=== PATIENT | female | born 1995 | race Caucasian/White ===

== ENCOUNTER 2024-02-13 08:24 | Outpatient (AMB) | payer OTHER, SELFPAY ==
[2024-02-13 08:32] VITALS: BP 100/64; PULSE 75; O2SAT 100; BMI 26.0
--- NOTE | 2024-02-13 08:32 | MHC.OFFVIS ---
Vital Signs 02/13/24 08:32 Height 5 ft 3 in Weight 146 lb 13.246 oz BMI 26.0 BP 100/64 Blood Pressure Location Rt brachial Position Sitting Pulse 75 Pulse Source Pulse Oximeter Pulse Oximetry (%) 100 Oxygen Delivery Method Room Air Intake Visit Reasons: PSA/MR Recieved/lm Intake Note: Patient presents today for follow up on psoriatic arthritis. She was last seen by Dr. Carlson in [facility] on 09/25/2023. She would like to talk about lab orders today. Allergies hydromorphone [From Dilaudid] Allergy (Intermediate, Verified 02/13/24 08:37) Anaphylaxis ketorolac [From Toradol] Allergy (Intermediate, Verified 02/13/24 08:37) Anaphylaxis cocentyx Allergy (Mild, Uncoded 02/13/24 08:37) Rash moxifloxacin Adverse Reaction (Mild, Uncoded 02/13/24 08:37) Swelling HPI HPI PSA/MR Recieved/lm: Details: After last visit she received prednisone course for PsA, which relieved joint pain but exacerbated PsO chest, behind ears, buttocks (inverse PsO). She has been on topical zoryve cream (roflumilist) for the last 3 weeks with benefit by Dermatolgy. 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 Stiffness is occurring throughout the day and these difficulties and function are throughout the day. In the morning she may have difficulty with opening bottles. [facility] Surgical History (Updated 02/12/24 @ 16:32 by Raina Ordaz CMA) H/O colonoscopy Review of Systems Const All systems reviewed & are unremarkable except as noted in HPI and below Physical Exam Vital Signs: Last Vital Signs Pulse 75 02/13/24 08:32 BP 100/64 02/13/24 08:32 Pulse Ox 100 02/13/24 08:32 Oxygen Delivery Method Room Air 02/13/24 08:32 BMI result Body Mass Index 26.0 Const Other: General: Comfortable CVS: RRR Respiratory: clear to auscultation bilaterally. Good respiratory effort Skin: No lesions seen MSK: No tender joints or synovitis present. Good range of motion of upper extremity lower extremity. Negative MIKEL. No SI joint tenderness on palpation. Good lumbar flexion. Good cervical range of motion. Assessment & Plan Assessment & Plan (1) Psoriatic arthritis: Comment: History of psoriatic arthritis HLA B27 positivity. Psoriasis diagnosed at age 10 months, with psoriatic developing at 8 years of age with inflammatory back pain. Sacroiliitis on initial presentation. Humira initially was started but discontinued due to fears of needles when she was 10 years old. She failed Enbrel. Remicade was effective but it was discontinued by level vial marker at the time for unknown reason and patient flared. Cosentyx caused rash. Otezla caused migraines. Simponi helps psoriatic arthritis but not psoriasis. Cimzia initially caused skin infections. Reintroduction of Cimzia 04/13/2020 due to without side effects but then led to secondary treatment failure for psoriasis. Taltz started 2023 by Dermatology. Initially tells did not control inflammatory arthritis. She received a prednisone course in August, which relieved inflammatory arthritis but exacerbated psoriasis. She is now on topical agent roflumilast the last 3 weeks that has been controlling her psoriasis. She is currently experiencing stiffness in her hands with reduced function at times at work. We discussed adjunct therapy with DMARD sulfasalazine. She has a history of drug-induced in the past. She will require close drug monitoring. Discussed side effects, benefits and drug monitoring on sulfasalazine. Sulfasalazine is safe in . She is considering having a 2nd child. Code(s): L40.50 - Arthropathic psoriasis, unspecified Category: Medical Plan: Labs for disease and drug monitoring ordered. Patient prefers to have labs done locally for convenience. She will have labs done this week and again in 1 month. Once I receive lab results with labs that were going to be done this week, I will send sulfasalazine 500 mg twice a day She is going to continue Taltz prescribed by Dermatology Return to clinic in 3 months (2) Other snf (current) drug therapy: Code(s): Z79.899 - Other snf (current) drug therapy Category: Medical Plan: See above Plan . Orders: Orders Alanine Aminotransferase 02/13/24 Z79.899 - Other termite exterminator helper (current) drug therapy Aspartate Amino Transferase 02/13/24 Z79.899 - Other termite exterminator helper (current) drug therapy C Reactive Protein 02/13/24 L40.50 - Arthropathic psoriasis, unspecified, Z79.899 - Other termite exterminator helper (current) drug therapy Complete Blood Count Auto Diff 02/13/24 Z79.899 - Other snf (current) drug therapy Erythrocyte Sedimentation Rate 02/13/24 L40.50 - Arthropathic psoriasis, unspecified, Z79.899 - Other termite exterminator helper (current) drug therapy Hepatitis B,C Profile 02/13/24 L40.50 - Arthropathic psoriasis, unspecified, Z79.899 - Other snf (current) drug therapy Creatinine 02/13/24 L40.50 - Arthropathic psoriasis, unspecified, Z79.899 - Other termite exterminator helper (current) drug therapy C Reactive Protein 02/13/24 L40.50 - Arthropathic psoriasis, unspecified, Z79.899 - Other termite exterminator helper (current) drug therapy Erythrocyte Sedimentation Rate 02/13/24 L40.50 - Arthropathic psoriasis, unspecified, Z79.899 - Other termite exterminator helper (current) drug therapy Alanine Aminotransferase 02/13/24 Z79.899 - Other snf (current) drug therapy T Spot TB 02/13/24 L40.50 - Arthropathic psoriasis, unspecified, Z79.899 - Other snf (current) drug therapy Liver Panel 02/13/24 L40.50 - Arthropathic psoriasis, unspecified, Z79.899 - Other termite exterminator helper (current) drug therapy Creatinine 02/13/24 L40.50 - Arthropathic psoriasis, unspecified, Z79.899 - Other termite exterminator helper (current) drug therapy Complete Blood Count Auto Diff 02/13/24 Z79.899 - Other snf (current) drug therapy Aspartate Amino Transferase 02/13/24 Z79.899 - Other snf (current) drug therapy Coding Level of Care Code Est Pt Level 4 (28808) Diagnoses Psoriatic arthritis L40.50 Other termite exterminator helper (current) drug therapy Z79.899
== END 2024-02-13 09:14 | disposition home or self-care (01) ==
PROVIDERS: PCP Family Medicine; Visit Provider Internal Medicine Rheumatology
DX: L40.50 Arthropathic psoriasis, unspecified (principal); Z79.899 Other long term (current) drug therapy
CPT/HCPCS: 99214

== ENCOUNTER → 2024-02-13 08:24 | Outpatient (BNVA) | payer OTHER, SELFPAY | PROVIDERS: PCP Family Medicine; Visit Provider Internal Medicine Rheumatology ==

== ENCOUNTER 2024-05-19 08:28 | Outpatient (AMB) | payer OTHER, SELFPAY ==
--- NOTE | 2024-05-19 08:31 | A.OFFVIS_ITS ---
Vital Signs 05/19/24 08:38 Height 5 ft 3 in Weight 144 lb 6.444 oz BMI 25.6 BP 110/72 Pulse Oximetry (%) 99 Oxygen Delivery Method Room Air Intake Visit Reasons: 3 mo f/u Intake Note: Patient presents today for follow up on psoriatic arthritis Accompanied by: Self / Same As Patient Allergies hydromorphone [From Dilaudid] Allergy (Intermediate, Verified 05/19/24 08:32) Anaphylaxis ketorolac [From Toradol] Allergy (Intermediate, Verified 05/19/24 08:32) Anaphylaxis cocentyx Allergy (Mild, Uncoded 02/13/24 08:37) Rash moxifloxacin Adverse Reaction (Mild, Uncoded 02/13/24 08:37) Swelling HPI HPI 3 mo f/u: Details: No joint stiffness or pain. Denies joint swelling. A day before she is on Taltz she experiences left SI joint pain, which resolves after taking Taltz. She has resolution of psoriasis on her anterior chest and extremities with topical zoryve cream prescribed by Dermatology who is also prescribing her Taltz. She will be having regular monitoring of liver enzymes as in the past she has had transaminitis attributed to her immunosuppressive therapy for management of psoriatic arthritis and psoriasis. She continues to have psoriasis on bilateral eyelids upper and lower. She had an incident where she had blurry vision. She has seen telesales supervisor on campus [facility] site who has prescribed her topical antibiotics. She at this time does not have any infections but in the past she has had secondary infections such as staphylococcal infection from active psoriasis. She has a history of having se condary skin infections in her extremities and at the site where she has had nasal psoriasis due to psoriasis not being well controlled. Once the psoriasis is controlled, infections resolved. She has had left 4th trigger finger release age 8 with onset of trigger finger at age 6. She has had limited full flexion of left 4th finger. She also had trigger finger release on right hand age 13 with complete mobility. She is trying to have a 2nd child. She has spoken with Dermatology. If she gets , Taltz will be switched back to Cimzia. [facility] Surgical History H/O colonoscopy Review of Systems Const All systems reviewed & are unremarkable except as noted in HPI and below Physical Exam Vital Signs: Last Vital Signs BP 110/72 02/25/25 08:38 Pulse Ox 99 05/19/24 08:38 Oxygen Delivery Method Room Air 05/19/24 08:38 BMI result Body Mass Index 25.6 Const Other: General: Comfortable CVS: RRR Respiratory: clear to auscultation bilaterally. Good respiratory effort Skin: No lesions seen MSK: No tender joints or synovitis present. Good range of motion of upper extremity lower extremity. Negative MIKEL. No SI joint tenderness on palpation. Good lumbar flexion. Good cervical range of motion. Assessment & Plan Assessment & Plan (1) Psoriatic arthritis: Comment: History of psoriatic arthritis HLA B27 positivity. Psoriasis diagnosed at age 10 months, with psoriatic developing at 8 years of age with inflammatory back pain. Sacroiliitis on initial presentation. Humira initially was started but discontinued due to fears of needles when she was 10 years old. She failed Enbrel. Remicade was effective but it was discontinued by home visitor at the time for unknown reason and patient flared. Cosentyx caused rash. Otezla caused migraines. Simponi helps psoriatic arthritis but not psoriasis. Cimzia initially caused skin infections. Reintroduction of Cimzia 04/13/2020 due to without side effects but then led to secondary treatment failure for psoriasis. Taltz started 2023 by Dermatology. Initially tells did not control inflammatory arthritis. She received a prednisone course in August, which relieved inflammatory arthritis but exacerbated psoriasis. She is now on top ical agent roflumilast the last 3 weeks that has been controlling her psoriasis except on eyelids. Sulfasalazine was started due to stiffness in hands, which patient took for a month but did not have labs done for drug monitoring to enable continuation of treatment. At this time she does not have any more stiffness. She is considering having a 2nd child. If she gets , Dermatology we will change Taltz to Cimzia. Code(s): L40.50 - Arthropathic psoriasis, unspecified Category: Medical Plan: Monitor clinically for symptoms of psoriatic arthritis while patient is on Taltz prescribed by events specialist indicated for both psoriatic arthritis and psoriasis Ophthalmology referral [facility] Ophthalmology Dr. Elsa Encinas for further management and treatment of eyelids psoriasis (2) Psoriasis: Comment: She continues to have psoriasis affecting her eyelids. Dermatology has not been able to provide her with topical treatment of eyelids psoriasis. She has h istory of staphylococcal infections at sites of psoriasis secondary uncontrolled psoriasis. I recommended that she see an unpaid intern associated with academic institution for further evaluation and treatment. Code(s): L40.9 - Psoriasis, unspecified Category: Medical Plan: I have referred her to [facility] Ophthalmology Dr. Elsa Encinas for further management and treatment of eyelids psoriasis (3) S/P trigger finger release: Comment: Left 4th finger age 8 with resultant limited full flexion of left 4th finger. She agreed to OT for increasing mobility Code(s): Z98.890 - Other specified postprocedural states Category: Surgical Plan: OT ordered for patient to have done on campus at [facility] in [place]. Requisition given to patient (4) Other mcc (current) drug therapy: Code(s): Z79.899 - Other long term care pharmacist (current) drug therapy Category: Medical Plan: Dermatology is monitoring LFTs every 3 months. I recommend periodic checked for CBC due to risk of bone marrow suppression and creatinine to ensure that kidney function remained stable on treatment. Patient will discuss with events specialist Orders: Orders OT Evaluation and Treatment Today Z98.890 - Other specified postprocedural states Referrals Ophthalmology Referral L40.50 - Arthropathic psoriasis, unspecified, L40.9 - Psoriasis, unspecified Medications: Discontinued sulfasalazine give with food (meal/snack). Labs due 3.5 weeks after starting sulfasalazine. Discontinued Reason: Doctor's Order 0.5 grams PO DAILY 60 tabs 0RF Coding Level of Care Code Est Pt Level 4 (31735) Complex EM visit Add On G2211 Diagnoses Psoriatic arthritis L40.50 Psoriasis L40.9 S/P trigger finger release Z98.890 Other long term care pharmacist (current) drug therapy Z79.899 Time Spent (min) 30
[2024-05-19 08:38] VITALS: BP 110/72; O2SAT 99; BMI 25.6
--- OUTSIDE RECORDS SUMMARY | 2024-05-19 08:58 | XMS_ITS | Encounter Summary ---
Author Organization [facility] Address [address] [place] [address] Care Team Providers Care Mine Deputy Name Role Phone Zhang Larson APRN Primary Care Provider Encounter Details Date Type Department Care Team ([facility] st Contact Info) Description 02/09/[address] [facility] [address] [place] [address] Nayana Alves MD [address] [place] [id number] Social History Tobacco Use Types Packs/Day Years Used Date Smoking Tobacco: Never Smokeless Tobacco: Never Sex and Gender Information Value Date Recorded Sex Assigned at Not on file Gender Identity Not on file Sexual Orientation Not on file COVID-19 Exposure Response Date Recorded In the last month, have you been in contact with someone who was confirmed or suspected to have Coronavirus / COVID-19? No / Unsure 02/04/2020 10:14 AM EST documented as of this encounter Plan of Treatment Not on file documented as of this encounter Visit Diagnoses Not on filedocumented in this encounter Care Teams Mine Deputy Relationship Specialty Start Date End Date Zhang Larson APRN [address] [place] [address] PCP - General Family Medicine 11/21/18 documented as of this encounter
--- OUTSIDE RECORDS SUMMARY | 2024-05-19 08:58 | XMS_ITS | Clinical Summary ---
Author Organization [facility] Address [address] [place] [address] Care Team Providers Care Probation And Patrol Agent Name Role Phone Preston Garcia MD Primary Care Provider [phone] Surgical History Surgery Date Site/Laterality Comments OTHER SURGICAL HISTORY Left 2004, Right 2007 PROCEDURE:Sagital Band reconstruction of bilateral ring finger tendons;COMMENT:for trigger finger SECTION 02/23/2021 N/A PROCEDURE: SECTION;COMMENT:Procedure: OB SECTION; Surgeon: Ester Hewitt MD; Location: [facility] DELIVERY ROOM; Service: Obstetrics; Laterality: N/A; Medical History Medical History Date Comments Psoriasis DX:Psoriasis Psoriatic arthritis (CMS/HCC) DX :Psoriatic arthritis (HCC) Functional constipation DX:Funct ional constipation;COMMENT:until the age of 10. now gone Anxiety DX:Anxiety Depression DX:Depression Trigger finger in 2004 - Left, 2007 - right DX:Trigger finger PTSD (post-traumatic stress disorder) DX:PTSD (post-traumatic stress disorder) Family History Medical History Relation Name Comments No Known Problems Father Psoriasis Maternal Grandfather also ps oriatic arthritis Heart disease Maternal Grandmother Lupus Maternal Grandmother Rheum arthritis Maternal Grandmother Rheum arthritis Mother Relation Name Status Comments Father Alive Maternal Grandfather Maternal Grandmother Mother Alive Social History Tobacco Use Types Packs/Day Years Used Date Smoking Tobacco: Never Smokeless Tobacco: Never Alcohol Use Standard Drinks/Week Comments Not Currently 1 (1 standard drink = 0.6 oz pur e alcohol) Comments Unknown Sex and Gender Information Value Date Recorded Sex Assigned at Not on file Legal Sex Female 10:33 PM EST Gender Identity Not on file Sexual Orientation Not on file Obstetrics History Plan of Treatment Health Maintenance Due Date Last Done Comments COVID-19 Vaccine (#1) 07/28/2000 DTaP,Tdap,and Td Vaccines (1 - Tdap) 07/28/2014 Hepatitis B Vaccines (1 of 3 - 19+ 3-dose series) 07/28/2014 Cervical Cancer Screening: Pap Smear 07/28/2016 Cholesterol Screening (Lipid Panel) 02/25/2022 Depression Screening 02/25/2022 HIV Screening 02/25/2022 Hepatitis C Screening 02/25/2022 Social Influencers of Health Screening 02/25/2022 Hypertension/CHF/CAD Annual BMP Blood Test 03/23/2022 02/24/2021, 02/23/2021, 02/22/2021, Additional history exists Influenza Vaccine (#1) 2023 HIB Vaccines Aged Out No longer eligi ble based on patient's age to complete this topic HPV Vaccines Aged Out No longer eligi ble based on patient's age to complete this topic Hepatitis A Vaccines Aged Out No long er eligible based on patient's age to complete this topic IPV Vaccines Aged Out No longer eligi ble based on patient's age to complete this topic MMR Vaccines Aged Out No longer eligi ble based on patient's age to complete this topic Meningococcal ACWY Vaccine Aged Out N o longer eligible based on patient's age to complete this topic Meningococcal B Vacine Aged Out No lo nger eligible based on patient's age to complete this topic Pneumococcal Vaccine: Pediatrics (0 to 5 Years) and At-Risk Patients (6 to 64 Years) Aged Out No longer eligible based on patient's age to complete this topic RSV Immunization Patients Under 20 months Aged Out No longer eligible based on patient's age to complete this topic Varicella Vaccines Aged Out No longer eligible based on patient's age to complete this topic Medical Devices Implanted Type Area Senior Courtroom Clerk Device Identifier Shelf Expiration Date Model / Serial / Lot Hemostat Celulos 4 3x4in Oxydized Pedi Sz [facility] [id number] Implanted:Qty : 1 on 02/23/2021 by Ester Hewitt MD Implants N/A: Uterus JN [employer] 10/22/20241942 / / [id number] Care Teams Probation And Patrol Agent Relationship Specialty Start Date End Date Preston Garcia MD [address] [place] [address], [place] [address] PCP - General Emergency Medicine 4/29/21
--- OUTSIDE RECORDS SUMMARY | 2024-05-19 08:58 | XMS_ITS | Encounter Summary ---
Author Organization [facility] Address [address] [place] [address] Care Team Providers Care Collarette Separator Name Role Phone Zhang Larson APRN Primary Care Provider Encounter Details Date Type Department Care Team ([facility] st Contact Info) Description 02/09/[address] [facility] [address] [place] [address] Nayana Alves MD [address] [place] [phone] Social History Tobacco Use Types Packs/Day Years [...] on filedocumented in this encounter Care Teams Collarette Separator Relationship Specialty Start Date End Date Zhang Larson APRN [address] [place] [phone] PCP - General Family Medicine 11/21/18 documented as of this encounter
--- OUTSIDE RECORDS SUMMARY | 2024-05-19 08:58 | XMS_ITS | Encounter Summary ---
Author Organization [facility] Address [address] [place] [address] Care Team Providers Care Senior Cognos Developer Name Role Phone Zhang Larson APRN Primary Care Provider Encounter Details Date Type Department Care Team ([facility] st Contact Info) Description 10/30/2018 Scanned Document [facility] [address], [address] [place] [id number] Derrick Irvin MD [address] [facility] [address] [place] [address] Social History Tobacco Use Types Packs/Day Years Used Date Smoking Tobacco: Never Assessed Sex and Gender Information Value Date Recorded Sex Assigned at Not on file Gender Identity Not on file Sexual Orientation Not on file documented as of this encounter Plan of Treatment Not on file documented as of this encounter Visit Diagnoses Not on filedocumented in this encounter Care Teams Senior Cognos Developer Relationship Specialty Start Date End Date Zhang Larson APRN [address] [place] [address] PCP - General Family Medicine 11/21/18 documented as of this encounter
--- OUTSIDE RECORDS SUMMARY | 2024-05-19 08:58 | XMS_ITS | Clinical Summary ---
Author Organization [facility] Address [address] [place] [address] Care Team Providers Care Plastics Engineering Teacher Name Role Phone Preston Garcia MD Primary Care Provider [phone] Allergies Active Allergy Reactions Criticality Noted Date Comments Hydromorphone Hives High 02/24/2021 Hives, including mouth Ketorolac Tromethamine Anaphylaxis,Hives ,It cruzito,Palpitations,S hortness Of Breath,Swelling High 11/15/2020 Loteprednol-Tobramycin Rash Low 10/28/2017 Moxifloxacin Swelling 10/28/2017 Eye drops only Secukinumab Rash Low 04/25/2016 Medications Medication Sig Dispensed Refills Start Date End Date Status [id number]-Wh-FA (PRE- PO) Take by mouth. 0 Active certolizumab pegol (Cimzia) 2 X 200 MG KIT injectionIndications :Psoriatic arthritis (HCC),Plaque psoriasis Inject 200 mg under the skin every 14 (fourteen) days. 2 each 5 07/18/2020 Active FLUoxetine (PROzac) 20 MG capsule Take 1 capsule (20 mg total) by mouth daily. 30 capsule 2 02/27/2021 Active docusate sodium 100 MG CAPS Take 100 mg by mouth 2 (two) times a day. 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 Psoriasis 01/18/2016 Obstructive sleep apnea 02/12/2011 Overview: Overview: On CPAP Psoriasis with arthropathy 07/26/2008 Overview: Overview: Rheum records scanned 06/2018 Family History Medical History Relation Name Comments No Sig Med Hx Father Psoriasis Maternal Grandfather also ps oriatic [...] drink = 0.6 oz pur e alcohol) occasionally Sex and Gender Information Value Date Recorded Sex Assigned at Female 01/07/2019 12:42 PM EDT Gender Identity Female 02/06/2021 10:24 AM EST Sexual Orientation Straight 02/06/2021 10 :24 AM EST Job Start Date Occupation Industry Not on file Not on file Not on file Last Filed Vital Signs Vital Sign Reading Time Taken Comments Blood Pressure 131/81 02/26/2021 1:06 PM EST Pulse 60 02/26/2021 1:06 PM EST Temperature 37.1 ??C (98.7 ??F) 02/26/2021 1:06 PM ES T Respiratory Rate 18 02/26/2021 1:06 PM EST Oxygen Saturation 97% 02/26/2021 1:06 PM EST Inhaled Oxygen Concentration - - Weight 73.5 kg (162 lb) 02/22/2021 1:50 PM EST Height 160 cm (5' 3 ) 02/22/2021 1:50 PM EST Body Mass Index 28.7 02/22/2021 1:50 PM EST Plan of Treatment Health Maintenance Due Date Last Done Comments COVID-19 Vaccine (#1) 01/29/1996 Depression Screening 2007 Preventative Health Evaluation 07/28/2013 Cervical Cancer Screening (Pap Smear) 07/28/2016 BMI Counseling 12/19/2019 12/18/2018 Influenza Vaccine (#1) 2023 9, 12/30/2017, 06/13/2017, Additional history exists DTap / Tdap / Td (2 - Td or Tdap) 11/13/2026 11/13/2016 Hepatitis B Vaccines Completed 02/05/1996, 1995, 1995 Hepatitis C Screening Completed 12/24/2019 Pneumococcal Vaccine Aged Out No long er eligible based on patient's age to complete this topic RSV Ped < 20 months Aged Out No longe r eligible based on patient's age to complete this topic Medical Devices Implanted Type Area [employer] Device Identifier Shelf Expiration Date Model / Serial / Lot Hemostat Celulos 4 3x4in Oxydized Pedi Sz [facility] [id number] - [id number] Implanted:Qty : 1 on 02/23/2021 by Ester Hewitt MD at [facility] and Med Hemostatic Agent N/A: Uterus [facility] [employer] 10/22/2024 1943 / / [id number] Advance Directives For more information, please contact: [phone] Latest Code Status on File Code Status Date Activated Date Inactivated Comments Full Code 02/22/2021 4:07 PM 02/27/2021 2:21 AM This code status was ascertained in the following way: discussion with patient . Care Teams Plastics Engineering Teacher Relationship Specialty Start Date End Date Preston Garcia MD [address] [place] [phone] PCP - General Emergency Medicine 07/21/20
--- OUTSIDE RECORDS SUMMARY | 2024-05-19 08:58 | XMS_ITS | Encounter Summary ---
Author Organization [facility] Address [phone] [facility] [place] [address] Care Team Providers Care Stakeholder Manager Name Role Phone Ruslan Arnold MD Primary Care Provider [phone] Encounter Details Date Type Department Care Team (Latest Contact Info) Description 07/17/2023 Transcribe Orders [facility] Specimen Processing [address] [place] [address] Светлана Bond PA [address] [facility] [address] [place] [address] Encounter for long-term (current) use of other medications (Primary Dx) Social History Tobacco Use Types Packs/Day Years Used Date Smoking Tobacco: Never Smokeless Tobacco: Never Alcohol Use Standard Drinks/Week Comments Yes 0 (1 standard drink = 0.6 oz pur e alcohol) Education Answer Date Recorded Are you interested in more education? Not on roberto e 07/21/2022 Are you concerned about learning? Not on file 07/21/2022 No 07/21/2022 No 07/21/2022 Digital Access Answer Date Recorded No 08/18/2022 No 08/18/2022 Reliable internet access at home? Not on file 08/18/2022 Device with a working camera? Not on file Sex and Gender Information Value Date Recorded Sex Assigned at Not on file Gender Identity Not on file Sexual Orientation Not on file documented as of this encounter Plan of Treatment Scheduled Orders Name Type Priority Associated Diagnoses Orde r Schedule LFTs (hepatic panel) Lab Routine Encounter for long-term (current) use of other medications Expected: 07/17/2023, Expires: 07/16/2024 documented as of this encounter Visit Diagnoses Diagnosis Encounter for long-term (current) use of other medications- Primary documented in this encounter Care Teams Stakeholder Manager Relationship Specialty Start Date End Date Ruslan Arnold MD [address] [place] [phone] [email or web address] PCP - General Family Medicine 05/21/23 documented as of this encounter Additional Source Comments The information contained in this document represents components of the legal health record. It is not the complete legal health record.[facility]
--- OUTSIDE RECORDS SUMMARY | 2024-05-19 08:58 | XMS_ITS | Data Portability ---
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 counseling - diet/suppl ements, exercise/t ravel/recr eation, health/ill nesses, emergency/ labor, things to avoid Questions answered OB/Medical /Surgical history reviewed Script for PNV with DHA given Routine OB labs drawn Counseled on Cystic Fibrosis/S siomn Muscular Atrophy/Fr agile X/Muscular Dystrophy Screening, info given for Piotr to pt, will check results from previous when indicated Counseled on First Trimester Screening/ Cell Free DNA, info given, pt to be referred to MFM for screening as indicated Counseled on Covid Travel Pre-cautio ns/Restric tions, Refer to CDC website for most up to date travel advisories Miscarriag e Pre-cautio ns reviewed Schedule Dating Ultrasound to confirm EDC Schedule IOB - initiate OB care Call with any additional questions 25min spent in consultati on [id number] SATHYA SUAZO DO [address] [address] 08/26/2020 13:29:59 08/26/2020 14:16:49 Routine care 526270032 Z34.90 16764950 Z33.1 counseling - diet/suppl ements, exercise/t ravel/recr eation, health/ill nesses, emergency/ labor, things to avoid Questions answered OB/Medical /Surgical history reviewed. [id number] RAUL Bellamy MD [address] [place] [address] 09/21/2020 16:17:15 09/22/2020 08:51:21 Routine care 313631752 Z34.02 Gestation period, 14 weeks 01002082 Z3A.14 [id number] POLI HEWITT MD [address] [address] 10/19/2020 16:19:05 10/20/2020 08:56:13 [id number] SATHYA SUAZO DO [address] [address] 11/17/2020 16:11:46 11/18/2020 07:17:44 [id number] Z34.03 Z34.83 [id number] Yuli Gutierrez DO [address] [address] 12/15/2020 14:43:03 12/16/2020 09:46:27 Routine care 149289486 Z34.02 Gestation period, 26 weeks 27399903 Z3A.26 [id number] POLI HEWITT MD [address] [address] 12/28/2020 08:58:41 12/28/2020 09:41:02 support 063811960 Z39.1 [id number] LANA CARSON MD [address] [address] 01/13/2021 08:46:33 01/13/2021 09:18:10 [id number] DENISE PARKINSON MD [place] [address] 01/27/2021 10:00:45 01/27/2021 12:34:21 Routine care 803670546 Z34.03 Gestation period, 32 weeks 3539163 Z3A.32 [id number] RAUL Bellamy MD [place] [address] 01/31/2021 08:06:13 01/31/2021 09:31:03 Routine care 495107283 Z34.03 Low lying placenta 85324 2006 O44.43 Psoriatic arthritis 1563 21360 L40.50 Bicornuate uterus 082512 03 Q51.3 Gestation period, 33 weeks 07497698 Z3A.33 [id number] RAUL Bellamy MD [place] [address] 02/07/2021 07:56:33 02/07/2021 09:17:38 Psoriatic arthritis 017471166 L40.50 Bicornuate uterus 765499 03 Q51.3 Gestation period, 34 weeks 04221268 Z3A.34 [id number] POLI HEWITT MD [place] [address] 02/21/2021 07:57:31 02/22/2021 10:25:32 Liver enzymes level above reference range 385098200 R74.01 [id number] SATHYA SUAZO DO [facility] [address] [place] [address] 03/07/2021 11:13:44 03/07/2021 14:33:13 Postoperative visit 320219366 Z09 Doing wellContin ue zoloft 50 QDRTO PP exam 4 weeks [id number] RAUL Bellamy MD [facility] [address] [place] [address] 04/04/2021 08:32:40 04/04/2021 09:05:44 Severe pre-eclampsia 42546536 O14.15 care 78592168 8 Z39.2 - Doing well- s/p CD for breech and hip/joing pain from PA, okay to return to normal activities - moods well controlled on prozac 20mg daily (refill provided)- Breastfeed ing well- contracept ion discussed, desires nexplanon- Had pre-E w/ SF (elevated AST/ALT, low plts) -> recheck these today [id number] LANA CARSON MD [facility] [address] [place] [place] [address] 04/26/2021 09:52:22 04/26/2021 13:39:07 Breast infection 883526212 N61.0 most likely yeast infection of breasts. Will treat with diflucan.I f no response in 24-48 hours to callTo f/u with pedi regarding baby and possible thrush [id number] SATHYA SUAZO DO [facility] 19 [facility] [address] [place] [address] 05/04/2021 14:35:11 05/04/2021 15:46:43 Breast infection 575360253 N61.0 Reviewed with ptStop using nystatinAd vised to soak nipples and gently remove crusted milk/debri sBactroban ointment TIDTC to at [facility] - they will reach out to her. Health Concerns Section Related Observation LastModified by Organization Detai ls LastModified Time None Recorded Concern Status LastModified by Organization Details LastModified Time None Recorded Advance Directives Directive None Recorded Payers Encounter Date Sequence Insurance Name Policy Number Policy Quinonez Covered Member ID Quinonez Member ID Guarantor Name 02/21/2021 1 [employer] ([facility]) [id number] Pamelia Green [id number] Pamelia Green 03/07/2021 1 [employer] - OPEN ACCESS PLUS Pamelia Green [id number] Pamelia Green 04/04/2021 1 [employer] - OPEN ACCESS PLUS Pamelia Green [id number] Pamelia Green 04/26/2021 1 [employer] - OPEN ACCESS PLUS Pamelia Green [id number] Pamelia Green 05/04/2021 1 [employer] - OPEN ACCESS PLUS Pamelia Green [id number] Pamelia Green Notes Date Note Type Note Provider Name and Address Organization Details Recorded Time 03/07/2021 text/html DOing well at [facility]. Minimal pain. Pumping and supplementing with formula.EPS = 6 SATHYA SUAZO DO 175 [facility], [address] [place] [address], [phone], [facility] 03/07/2021 12:13:10 04/04/2021 text/html [facility] VisitReported bypatient.Onset/Blas in02/23/21 Associated Symptoms:no abnormal bleeding; no pelvic pain; no constipation; no fecal incontinence; no dysuria; no urinary incontinence; no fever; no problems; no mastitisNotes:Boy Daniel 7lbs 8ozDelivered by Dr. HewittPediatrician: Dr. Dyllan Sanchez - Recovered well from , no pain, psoriactic arthritis pain minimal- moods good on prozac 20mg daily, EDPS 07/02, good support at home- and some formula supplementation, going well RAUL FOY MD [address], [address], [facility] 04/04/2021 09:02:32 04/26/2021 text/html pt. presents wit h increased stabbing breast pain with pumping. Started over the weekend when baby nursed without breast yarbrough and notices blisters on breast. now only pumping and notices shooting pain prior to pumping. no myalgias or fevers. Thinks baby has white lesions on mouth but not sure LANA CARSON MD [address], [address], [facility] 04/26/2021 10:37:47 05/04/2021 text/html Pt in the middle of course of diflucan and augmentin. States the mastitis improved within 24-48 hours, but she still has stabbing breast pain with pumping. Also noticing scabs on her nipples that do not come off. Very tender. SATHYA SUAZO DO 175 [facility], [address] [place] [address], [phone], [facility] 05/04/2021 15:45:39 OBGyn Episode Ob Episode Information Episode Created Date Number of Fetuses Patient Bloodtype Patient rh Status Prepregnancy Weight lbs Domestic Partner Domestic Partner Phone Father Name Senior Linux Systems Administrator Status 08/12/19 21 1 A Positive CLOSED Fetus Data First Name Last Name Admitted to NICU Weight (g) Sex Living Outcome Pediatric Complications Fetus ID Race Codes Race Delivery Type Eula sifuentes 3345.24 1 M Prematur e [id number] - Primary Problems Problem Notes Problem Name Start Date End Date Resolution Snomed Code Not e Bicornuate uterus 36253033 s/ p MFM, increased risk PTD, IUGR, malpresentatino -> growth USN in 3rd tri Liver enzymes level above reference range 248204028 see note from 3 4wga Low lying placenta 150059824 R epeat USN at 32 wga (resolved @ 33wga) Psoriatic arthritis 562371587 worsening in , Per MFM needs NSTs 2x/week, significant pelvic/joint pain, desires primary CD for this reason scheduled @ 39wga Fermin Calculation Initial Fermin Date Initial Exam Date Initial Exam Provider Initial Ultrasound Date Last Menstrual Period Date Ultra Sound Weeks Gestation 03/21/2021 08/11/2020 06/14/2020 0 Eighteen To Twenty Week Fermin Update Ultra Sound Date Fundal Height At Umbil Quickening Date Ultra Sound Latest Weeks Gestation Final Fermin Confirmed By Final Fermin Confirmed Date Final Fermin Date Ultra Sound Latest Days Gestation 0 03/21/20 21 0 Pre- Flowsheet Flowsheet Date 08/11/2020 Mendoza Score Blood Edema Fundus Height Fundus Units Glucose Ketones Leukocytes Nitrite Labor Signs Protein Cervic Dilation Cervic Effacement Cervic Station Type Weight in lbs Pre/Post Dialysis Refused Weight 143.728527201565 BP Diastolic BP Location Tested BP Systolic BP Type 70 112 Fetus Heart Rate Present A Present Fetus Movement Comments Pap with STD cx doneReviewed bicornuate uterus with pt and husbandWill schedule MFM consult at time of NTNo further VB - will wait until next visit to start baby aspirinPregnancy counseling - diet/supplements, exercise/travel/recreation, health/illnesses, emergency/labor, things to avoidQuestions answeredOB/Medical/Surgical history reviewedScript for PNV with DHA givenRoutine OB labs drawnCounseled on Cystic Fibrosis/Spinal Muscular Atrophy/Fragile X/Muscular Dystrophy Screening, info given for Piotr to pt, will check results from previous when indicatedCounseled on First Trimester Screening/Cell Free DNA, info given, pt to be referred to MFM for screening as indicatedCounseled on Covid Travel Pre-cautions/Restrictions, Refer to CDC website for most up to date travel advisoriesMiscarriage Pre-cautions reviewed Flowsheet Date 08/26/2020 Mendoza Score Blood Edema Fundus Height Fundus Units Glucose Ketones Leukocytes Nitrite Labor Signs Protein Cervic Dilation Cervic Effacement Cervic Station neg 10 cm none none Negative neg Type Weight in lbs Pre/Post Dialysis Refused Weight 141.062019003330 BP Diastolic BP Location Tested BP Systolic BP Type 74 122 Fetus Heart Rate Present A 160 Present Fetus Movement Comments Doing well. Nausea resolved. No further VB. Has MFM consult ant NT scheduled at 12 weeks. Stop progesterone. Reviewed baby aspirin guidelines. Flowsheet Date 09/21/2020 Mendoza Score Blood Edema Fundus Height Fundus Units Glucose Ketones Leukocytes Nitrite Labor Signs Protein Cervic Dilation Cervic Effacement Cervic Station neg none none Negative trace Type Weight in lbs Pre/Post Dialysis Refused Weight 142.349263837426 BP Diastolic BP Location Tested BP Systolic BP Type 76 110 Fetus Heart Rate Present A 150 Fetus Movement A Yes Comments N/v improved. Studying immun ology at [facility]. Rvw'd nml NIPT and carrier screening. RTO 4wks for OBV and MSAFP. Flowsheet Date 10/19/2020 Mendoza Score Blood Edema Fundus Height Fundus Units Glucose Ketones Leukocytes Nitrite Labor Signs Protein Cervic Dilation Cervic Effacement Cervic Station neg 18 cm none negative none neg Type Weight in lbs Pre/Post Dialysis Refused Weight 148.171184677725 BP Diastolic BP Location Tested BP Systolic BP Type 72 116 Fetus Heart Rate Present A 145 Fetus Movement A Yes Comments Doing well. Worried about he r back issues w/ psoriatic arthritis and delivery. She will see her material planning analyst in consult about mode of delivery. Has anatomy scan scheduled. RTO 4 weeks. MSAFP script given, she will discuss w/ and proceed w/ testing if they elect to do so. Flowsheet Date 11/17/2020 Mendoza Score Blood Edema Fundus Height Fundus Units Glucose Ketones Leukocytes Nitrite Labor Signs Protein Cervic Dilation Cervic Effacement Cervic Station neg 22 cm none neg Type Weight in lbs Pre/Post Dialysis Refused Weight 150.081624297019 BP Diastolic BP Location Tested BP Systolic BP Type 60 100 Fetus Heart Rate Present A 140 Present Fetus Movement A Yes Comments Doing well. +FM. Met with rh eumatologist. No clear answer to mode of delivery. Pt with back and hip pain with flares of arthritis. Very concerned about longterm pain with vaginal delivery. Reviewed r/b to delivery. She will discuss with . Reviewed labs next visit. Flowsheet Date 12/15/2020 Mendoza Score Blood Edema Fundus Height Fundus Units Glucose Ketones Leukocytes Nitrite Labor Signs Protein Cervic Dilation Cervic Effacement Cervic Station neg none 26 cm none negative none neg Type Weight in lbs Pre/Post Dialysis Refused Weight 153.204562577030 BP Diastolic BP Location Tested BP Systolic BP Type 68 114 Fetus Heart Rate Present A 145 Present Fetus Movement A Yes Comments Doing well. Baby is active. Too late for labs today, will return at 28 weeks with 3rd tri labs then. Reviewed CBB. Discussed risks for ptd. Reviewed options for mode of delivery/she is still considering. Follow up 2 weeks. Flowsheet Date 12/28/2020 Mendoza Score Blood Edema Fundus Height Fundus Units Glucose Ketones Leukocytes Nitrite Labor Signs Protein Cervic Dilation Cervic Effacement Cervic Station neg none 28 cm none negative none neg Type Weight in lbs Pre/Post Dialysis Refused Weight 153.052173827440 BP Diastolic BP Location Tested BP Systolic BP Type 74 120 Fetus Heart Rate Present A 155 Fetus Movement A Yes Comments Doing third tm labs. Had cov id booster. Flu shot and TDAP today. Has breastpump. Will place NEST consult. Wants primary elective at 39 wga, will schedule. RTO 2 weeks Flowsheet Date 01/13/2021 Mendoza Score Blood Edema Fundus Height Fundus Units Glucose Ketones Leukocytes Nitrite Labor Signs Protein Cervic Dilation Cervic Effacement Cervic Station neg 31 cm none neg Type Weight in lbs Pre/Post Dialysis Refused Weight 156.134945582434 BP Diastolic BP Location Tested BP Systolic BP Type 78 120 Fetus Heart Rate Present A 135 Fetus Movement A Yes Comments Doing well. Good FM. Has 32 wk usn scheduled. RTO 2 wks Flowsheet Date 01/27/2021 Mendoza Score Blood Edema Fundus Height Fundus Units Glucose Ketones Leukocytes Nitrite Labor Signs Protein Cervic Dilation Cervic Effacement Cervic Station neg 32 cm none negative none none neg Type Weight in lbs Pre/Post Dialysis Refused Weight 157.384693137947 BP Diastolic BP Location Tested BP Systolic BP Type 72 116 Fetus Heart Rate Present A 150 Present Fetus Movement A Yes Comments Doing well. Good FM, Discuss ed hydration, FM kick counts. Had USN today. Report pending. Per pt, MFM said to start NSTs 2x/wk for hx psoriatic arthritis-->ordered. Flowsheet Date 01/31/2021 Mendoza Score Blood Edema Fundus Height Fundus Units Glucose Ketones Leukocytes Nitrite Labor Signs Protein Cervic Dilation Cervic Effacement Cervic Station neg cm none neg Type Weight in lbs Pre/Post Dialysis Refused Weight 160.688719264888 BP Diastolic BP Location Tested BP Systolic BP Type 68 112 Fetus Heart Rate Present A 135 Fetus Movement A Yes Comments Here for NST today which is reactive. Rvw'd ob ultrasound AOG 32 wks, EFW 51%, HUBER 14.25cm, low lying placenta resolved. Per MFM recommend NSTs 2x/wk starting AOG 32wks & repeat growth USN 4 wks for psoriatic arthritis. Has primary CD scheduled b/c of significant pelvic pain from her arthritis @ 39wga. Has next NST/HUBER this Saturday @ hospital. RTO 1wk. Flowsheet Date 02/06/2021 Mendoza Score Blood Edema Fundus Height Fundus Units Glucose Ketones Leukocytes Nitrite Labor Signs Protein Cervic Dilation Cervic Effacement Cervic Station Type Weight in lbs Pre/Post Dialysis Refused BP Diastolic BP Location Tested BP Systolic BP Type Fetus Heart Rate Present Fetus Movement Comments Labs from 02/03/21 Rheum off ice notable for PLT 131, AST 59, ALT 99. Sent to L&D for pre-E/HELLP w/u. Flowsheet Date 02/07/2021 Mendoza Score Blood Edema Fundus Height Fundus Units Glucose Ketones Leukocytes Nitrite Labor Signs Protein Cervic Dilation Cervic Effacement Cervic Station 34 cm Type Weight in lbs Pre/Post Dialysis Refused Weight 161.877083843980 BP Diastolic BP Location Tested BP Systolic BP Type 78 118 Fetus Heart Rate Present A 135 Fetus Movement A Yes Comments NST reactive, Cat 1. Pt seen yesterday in L&D for elevated AST/ALT and low plt @ rheum office 02/03/21. BPs nml, no protein in urine yesterday or today. No davis, visual changes, ruq pain. No dx of HELLP or Pre-E @ this time but will monitor closely. 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 Will follow closely. F/u later this week for second NST & HUBER. Flowsheet Date 02/21/2021 Mendoza Score Blood Edema Fundus Height Fundus Units Glucose Ketones Leukocytes Nitrite Labor Signs Protein Cervic Dilation Cervic Effacement Cervic Station neg none 36 cm none none Negative neg 0cm 0% - 3 Type Weight in lbs Pre/Post Dialysis Refused Weight 162.087324270204 BP Diastolic BP Location Tested BP Systolic BP Type 70 122 Fetus Heart Rate Present A 135 Fetus Movement A Yes Comments RNST. Will repeat AST/ALT an d cbc today. Reviewed s/sx of HELLP- no symptoms today. See above note, h/o GARNICA. Continue twice weekly NSTs. GBS done. Stop ASA Menstrual History Last Menstrual Date Menses Monthly On Bcp Conception Prior Menses Frequency Hcg Plus Date Menarche Onset Age 0306/14/2020 Delivery Information Delivery Date Delivery Type Labor Anesthesia Weeks Gestation Incision Type Labor Labor Length Hrs Delivered By Post Complications Tubal Sterilization Discharge Date Comments 1 None Regional-Sp inal 36.2 Low Transvers e false None false Discharge Information Feeding Method Contraceptive Method Maternal HG B and HCT Levels Ob Episode Information Episode Created Date Number of Fetuses Patient Bloodtype Patient rh Status Prepregnancy Weight lbs Domestic Partner Domestic Partner Phone Father Name Senior Linux Systems Administrator Status 07/23/19 21 1 CLOSED Fetus Data First Name Last Name Admitted to NICU Weight (g) Sex Living Outcome Pediatric Complications Fetus ID Race Codes Race Delivery Type , Spontane ous [id number] Fermin Calculation Initial Fermin Date Initial Exam Date Initial Exam Provider Initial Ultrasound Date Last Menstrual Period Date Ultra Sound Weeks Gestation 0 Eighteen To Twenty Week Fermin Update Ultra Sound Date Fundal Height At Umbil Quickening Date Ultra Sound Latest Weeks Gestation Final Fermin Confirmed By Final Fermin Confirmed Date Final Fermin Date Ultra Sound Latest Days Gestation 0 0 Menstrual History Last Menstrual Date Menses Monthly On Bcp Conception Prior Menses Frequency Hcg Plus Date Menarche Onset Age Delivery Information Delivery Date Delivery Type Labor Anesthesia Weeks Gestation Incision Type Labor Labor Length Hrs Delivered By Post Complications Tubal Sterilization Discharge Date Comments 1 5 Discharge Information Feeding Method Contraceptive Method Maternal HG B and HCT Levels
--- OUTSIDE RECORDS SUMMARY | 2024-05-19 08:58 | XMS_ITS | Encounter Summary ---
Author Organization [facility] Address [phone] [facility] [place] [address] Care Team Providers Care Casual Shoe Inspector Name Role Phone Pcp, Unknown Primary Care Provider Ruslan Lopez MD Primary Care Provider [phone] Encounter Details Date Type Department Care Team (Late st Contact Info) Description 08/28/2022 Transcribe Orders Virtual Department [address] [place] [address] Ruslan Arnold MD [address] [place] [phone] Elevated LFTs (Primary Dx) Social History Tobacco Use Types Packs/Day Years Used Date Smoking Tobacco: Never Assessed Education Answer Date Recorded Are you interested [...] on file documented as of this encounter Results * US ABDOMEN COMPLETE (ADULT) (09/17/2022 9:26 AM EDT) Anatomical Region Laterality Modality Abdomen Ultrasound 09/17/2022 9:27 AM EDT Impressions 09/17/2022 9:28 AM EDT Unremarkable abdominal ultrasound Narrative 09/17/2022 9:28 AM EDT US ABDOMEN COMPLETE (ADULT) TECHNIQUE: Abdominal Ultrasound Complete. COMPARISON: None FINDINGS: Liver: No focal lesions. Main Portal Vein: Patent with normal direction of flow. Gallbladder: No gallstones or gallbladder wall thickening. Biliary: No intrahepatic or extrahepatic biliary ductal dilatation. ?The common bile duct measures 5 mm. Pancreas: Incompletely visualized. Spleen: Normal. No splenomegaly. Kidneys: Normal. No stones or hydronephrosis. ?? Aorta: Normal, where visualized sonographically. IVC: Normal intrahepatic segment. Procedure Note Antwan Rich MD, LESLIE - 09/17/2022 US ABDOMEN COMPLETE (ADULT) TECHNIQUE: Abdominal Ultrasound Complete. COMPARISON: None FINDINGS: Liver: No focal lesions. Main Portal Vein: Patent with normal direction of flow. Gallbladder: No gallstones or gallbladder wall thickening. Biliary: No intrahepatic or extrahepatic biliary ductal dilatation. The common bile duct measures 5 mm. Pancreas: Incompletely visualized. Spleen: Normal. No splenomegaly. Kidneys: Normal. No stones or hydronephrosis. Aorta: Normal, where visualized sonographically. IVC: Normal intrahepatic segment. IMPRESSION: Unremarkable abdominal ultrasound Ruslan Arnold MD IMG US ABDOMEN documented in this encounter Visit Diagnoses Diagnosis Elevated LFTs- Primary Other abnormal blood chemistry Elevated LFTs Other abnormal blood chemistry documented in this encounter Care Teams Casual Shoe Inspector Relationship Specialty Start Date End Date Pcp, Unknown PCP - General 04/02/22 05/20/23 Ruslan Arnold MD [address] [place] [phone] [email or web address] PCP - General Family Medicine 05/21/23 documented as of this encounter Additional Source Comments The information contained in this document represents components of the legal health record. It is not the complete legal health record.[facility]
--- OUTSIDE RECORDS SUMMARY | 2024-05-19 08:58 | XMS_ITS | Clinical Summary ---
Author Organization [facility] Address [address] [place] [address] Care Team Providers Care Chain Maker Machine Name Role Phone Neo Zhang rAron GREENBERG Primary Care Provider [phone] Allergies Active Allergy Reactions Criticality Noted Date Comments Secukinumab Hives,Rash/Dermatitis Medium 02/05/2020 Moxifloxacin Swelling Medium 02/05/2020 Eye drops caused eye swelling Prednisolone Unknown/Patient and Family Unable to Define Medium 02/05/2020 Medications Medication Sig Dispensed Refills Start Date End Date Status FLUoxetine (PROzac) 10 MG capsule TK 1 C PO D 1 12/25/2018 Active tacrolimus (PROTOPIC) 0.1 % ointment Apply topically. 08/05/2018 Acti ve golimumab (SIMPONI ARIA) 50 MG/4ML injection Infuse into a venous catheter. Active iiilhf-wlbrrzzmx-emjf esium sulfates (SUPREP BOWEL PREP KIT) 17.5-3.13-1.6 GM/177ML Solution solutionIndications:I tyra deficiency Take two 177 mL bottles as directed 2 Bottle 01/02/2019 Active EpiPen 2-Eugenio 0.3 MG/0.3ML auto-injectionIndicat ions:Drug-induced anaphylaxis, initial encounter Use as directed for allergic reaction. May repeat in 5-10 minutes as needed. 2 Device 1 02/09/2020 Active FLUoxetine (PROzac) 20 MG tablet Take 20 mg by mouth daily. Active triamcinolone (NASACORT AQ) 55 MCG/ACT Aerosol nasal spray into each nostril as needed for allergies. Active diphenhydrAMINE HCl (BENADRYL PO) Take by mouth as needed. Active Family History Medical History Relation Name Comments Hypertension Maternal Grandfather Diabetes Maternal Grandmother Heart attack Maternal Grandmother Hypertension Maternal Grandmother Asthma Mother Relation Name Status Comments Maternal Grandfather Maternal Grandmother Mother Social History Tobacco Use Types Packs/Day Years Used Date Smoking Tobacco: Never Smokeless Tobacco: Never Alcohol Use Standard Drinks/Week Comments Yes 2 (1 standard drink = 0.6 oz pur e alcohol) Sex and Gender Information Value Date Recorded Sex Assigned at Not on file Gender Identity Not on file Sexual Orientation Not on file Last Filed Vital Signs Vital Sign Reading Time Taken Comments Blood Pressure 120/82 01/02/2019 8:04 AM EDT Pulse - - Temperature - - Respiratory Rate - - Oxygen Saturation - - Inhaled Oxygen Concentration - - Weight 63.5 kg (140 lb) 02/05/2020 12:20 PM EST Height 160 cm (5' 3 ) 02/05/2020 12:20 PM EST Body Mass Index 24.8 02/05/2020 12:20 PM EST Plan of Treatment Health Maintenance Due Date Last Done Comments COVID-19 Vaccine (#1) 07/28/2000 DTaP/Tdap/Td Vaccines (1 - Tdap) 07/28/2014 Hepatitis B Vaccines (1 of 3 - 19+ 3-dose series) 07/28/2014 Pneumococcal Vaccine: Pediatric (0-5 Years) and At-Risk Patients (6 to 49 Years) (1 of 2 - PCV) 07/28/2014 Pap Smear (Ages 21-65) 08/12/2023 08/11/2020 Influenza Vaccine 10/24/2023 12/30/2017 Hepatitis C Virus Screening Completed 08/11/2020 HIV Screening Completed 12/28/2020, 08/11/2020 HPV Vaccines Aged Out No longer eligi ble based on patient's age to complete this topic Procedures Procedure Name Priority Date/Time Associated Diagnosis Comments HIV 1/2 AG/AB CMIA REFLEX TO CONFIRMATION Routine 12/28/2020 9:00 AM EDT THINPREP PAP TEST (HOME MORTGAGE DISCLOSURE ACT SPECIALIST) WITH HPV REFLEX, GC/CT Routine 08/11/2020 7:56 PM EDT HEPATITIS C VIRUS (HCV) ANTIBODY Routine 08/11/2020 9:46 AM EDT from Last 3 Months or Most Recently Relevant to Health Maintenance Results * HIV 1/2 Ag/Ab CMIA Reflex to Confirmation (12/28/2020 9:00 AM EDT) HIV Ag/Ab, 4th Gen Non-Reacti ve Non-Reacti ve [facility] LAB Comment: Results show no evidence of infection by HIV 1/2. If clinically indicated, repeat CMIA or test by nucleic acid amplification. Other 12/28/2020 9:00 AM EDT 12/28/2020 9:07 PM EDT Narrative [facility] CT LAB - 12/29/2020 11:03 AM EDT FASTING:UNKNOWN Zoya De La Torre DO LAB BLOOD ORDERABLE S [facility] LAB [address] [place], [place] * ThinPrep Pap Test (Faa Certified Powerplant Mechanic) with HPV Reflex, GC/CT (08/11/2020 7:56 PM EDT) Report Report [facility] CT LAB Comment: Final Gynecological Cytology Report ThinPrep Pap Test with HPV Reflex, GC/Chlamydia SPECIMEN ADEQUACY: SATISFACTORY FOR EVALUATION; ENDOCERVICAL/TRANSFORMATION ZONE COMPONENT PRESENT. INTERPRETATION: NEGATIVE FOR INTRAEPITHELIAL LESION OR MALIGNANCY. Electronically Signed: ??Zeenat Sultana CT (ASCP) Electronically Signed: ??Maile Bañuelos CT (ASCP) CLINICAL INFORMATION: LMP: NG Specimen Source: ??Cervix, Endocervix CPT Codes: 38482 ICD Codes: Z34.90 Other 08/11/2020 7:56 PM EDT 08/11/2020 9:11 PM EDT Zoya Parnellriele DO PATHOLOGY/CYTOLOGY ORDERABLES [facility] LAB [address] [place], [place] * Hepatitis C Virus (HCV) Antibody (08/11/2020 9:46 AM EDT) Hepatitis C Antibody 0.28 Non-Reacti ve Non-Reacti ve [facility] CT LAB Other 08/11/2020 9:46 AM EDT 08/11/2020 8:54 PM EDT Zoya Parnellriele LAB BLOOD ORDERABLE S [facility] CT LAB [address] [place], [place] from Last 3 Months or Most Recently Relevant to Health Maintenance Care Teams Chain Maker Machine Relationship Specialty Start Date End Date Zhang Larson, HAT BLOCKING OPERATOR [address] [place] [address] PCP - General Family Medicine 11/21/18
--- OUTSIDE RECORDS SUMMARY | 2024-05-19 08:58 | XMS_ITS | Encounter Summary ---
Author Organization [facility] Address [phone] [facility] [employer] [place] [address] Care Team Providers Care [place] Boatman Name Role Phone Ruslan Arnold MD Primary Care Provider [phone] Encounter Details Date Type Department Care Team (Late st Contact Info) Description 07/16/2023 Transcribe Orders [facility] Specimen Processing [address] [place] [address] Ruslan Arnold MD [address] [place] [address] Social History Tobacco Use Types Packs/Day Years [...] on filedocumented in this encounter Care Teams [place] Boatman Relationship Specialty Start Date End Date Ruslan Arnold MD [address] [place] [address] PCP - General Family Medicine 05/21/23 documented as of this encounter Additional Source Comments The information contained in this document represents components of the legal health record. It is not the complete legal health record.[facility]
--- OUTSIDE RECORDS SUMMARY | 2024-05-19 08:58 | XMS_ITS | Clinical Summary ---
Author Organization [facility] Address [phone] [place] [address] Care Team Providers Care Home Maker Name Role Phone Ruslan Arnold MD Primary Care Provider [phone] Allergies Active Allergy Reactions Criticality Noted Date Comments Hydromorphone Hives High 02/24/2021 Hives, including mouth Ketorolac Anaphylaxis,Hives,It c alberta,Palpitations,Sonia rtness Of Breath,Swelling High 11/15/2020 Moxifloxacin Swelling Medium 10/28/2017 Eye drops caused eye swelling Eye drops only Prednisolone Unknown Medium 02/05/2020 Secukinumab Hives,Rash Medium 04/25/2016 Tobramycin-Lotepred Rash Low 10/28/2017 Medications Medication Sig Dispensed Refills Start Date End Date Status CIMZIA 400 mg/2 mL (200 mg/mL x 2) SyKt subcutaneous syringe Cimzia 400 mg/2 mL (200 mg/mL x 2) subcutaneous syringe kit Active etonogestreL (NEXPLANON) 68 mg Impl Nexplanon 68 mg subdermal implant Active FLUoxetine (PROZAC) 20 MG tablet Take 20 mg by mouth daily. Active golimumab (SIMPONI ARIA) 12.5 mg/mL Soln Inject into the vein. Active albuterol 90 mcg/actuation inhaler Inhale 2 puffs into the lungs every 6 (six) hours as needed for wheezing or shortness of breath/dyspnea. 8 g 02/25/2023 Active Social History Tobacco Use Types Packs/Day Years Used Date Smoking Tobacco: Never Smokeless Tobacco: Never Tobacco Cessation:Counseling Given: Not Answered Alcohol Use Standard Drinks/Week Comments Yes 0 [...] Sign Reading Time Taken Comments Blood Pressure 116/74 02/25/2023 8:33 AM EST Pulse 89 02/25/2023 8:33 AM EST Temperature 36.9 ??C (98.4 ??F) 02/25/2023 8:33 AM ES T Respiratory Rate 16 02/25/2023 8:33 AM EST Oxygen Saturation 98% 02/25/2023 8:33 AM EST Inhaled Oxygen Concentration - - Weight - - Height - - Body Mass Index - - Plan of Treatment Health Maintenance Due Date Last Done Comments COVID-19 VACCINE (#1) 07/28/2000 DEPRESSION SCREENING 2007 HEPATITIS B SCREENING 07/28/2013 HIV ONE-TIME SCREENING (18-6 5 YEARS) 07/28/2013 HEPATITIS B VACCINES (1 of 3 - 19+ 3-dose series) 07/28/2014 PNEUMOCOCCAL VACCINES (0-49 years) (1 of 2 - PCV) 07/28/2014 PAP SMEAR 07/28/2016 SMOKING STATUS SCREENING (On ce After 26 Yrs) 07/28/2021 INFLUENZA VACCINE (#1) 2023 12/28/2020 Adult Td,Tdap Booster 12/28/2030 12/28/2020 HEPATITIS C SCREENING Completed 08/11/2020 , 12/24/2019 HEPATITIS A VACCINES Aged Out No long er eligible based on patient's age to complete this topic HIB VACCINES Aged Out No longer eligi ble based on patient's age to complete this topic MENINGOCOCCAL VACCINES (ACWY) Aged Out No longer eligible based on patient's age to complete this topic Medical Devices Not on file Care Teams Home Maker Relationship Specialty Start Date End Date Ruslan Arnold MD [address] [place] [address] [email or web address] PCP - General Family Medicine 05/21/23 Additional Source Comments The information contained in this document represents components of the legal health record. It is not the complete legal health record.[facility]
--- OUTSIDE RECORDS SUMMARY | 2024-05-19 08:58 | XMS_ITS | Encounter Summary ---
Author Organization [facility] Address [address] [place] [address] Care Team Providers Care Voice Systems Engineer Name Role Phone Zhang Larson APRN Primary Care Provider Encounter Details Date Type Department Care Team (Late st Contact Info) Description 02/03/2019 Scanned Document [facility] [address] [place] [address] [place] [address] Ford Darden DO [address] [place] [address] Social History Tobacco Use Types Packs/Day Years [...] on file documented as of this encounter Procedures Procedure Name Priority Date/Time Associated Diagnosis Comments PATHOLOGY REPORT 02/03/2019 12:0 0 AM EST documented in this encounter Results * (REPORT) PATHOLOGY REPORT (02/03/2019 12:00 AM EST) Ford Darden DO PATHOLOGY/CYTOLOGY O RDERABLES documented in this encounter Visit Diagnoses Not on filedocumented in this encounter Care Teams Voice Systems Engineer Relationship Specialty Start Date End Date Zhang Larson APRN [address] [place] [address] PCP - General Family Medicine 11/21/18 documented as of this encounter
== END 2024-05-19 10:03 | disposition home or self-care (01) ==
PROVIDERS: PCP Family Medicine; Visit Provider Internal Medicine Rheumatology
DX: L40.50 Arthropathic psoriasis, unspecified (principal); L40.9 Psoriasis, unspecified; Z98.890 Other specified postprocedural states; Z79.899 Other long term (current) drug therapy
CPT/HCPCS: 99214

== ENCOUNTER 2024-05-19 08:28 | Outpatient (REF) | payer OTHER, SELFPAY ==
--- OUTSIDE RECORDS SUMMARY | 2024-05-19 10:27 | XMS_ITS | Encounter Summary ---
Author Organization [facility] Address [phone] [facility] [place] [address] Care Team Providers Care Appliance Counselor Name Role Phone Ruslan Arnold MD Primary Care Provider [phone] Encounter Details Date Type Department Care Team (Latest Contact Info) Description 07/17/2023 Transcribe Orders [facility] Specimen Processing [address] [place] [address] Светлана Bnod PA [address] [facility] [address] [place] [address] Encounter for long-term (current) use of other [...] Primary documented in this encounter Care Teams Appliance Counselor Relationship Specialty Start Date End Date Ruslan Arnold MD [address] [place] [address] [email or web address] PCP - General Family Medicine 05/21/23 documented as of this encounter Additional Source Comments The information contained in this document represents components of the legal health record. It is not the complete legal health record.[facility]
--- OUTSIDE RECORDS SUMMARY | 2024-05-19 10:27 | XMS_ITS | Encounter Summary ---
Author Organization [facility] Address [address] [place] [address] Care Team Providers Care South Asian History Professor Name Role Phone Zhang Larson APRN Primary Care Provider Encounter Details Date Type Department Care Team ([facility] st Contact Info) Description 10/30/2018 Scanned Document [facility] [address] [facility], [address] [place] [phone] Derrick Irvin MD [address] [facility] Kev[address] [place] [address] Social History Tobacco Use Types Packs/Day Years Used Date Smoking Tobacco: Never Assessed Sex and Gender Information Value Date Recorded Sex Assigned at Not on file Gender Identity Not on file Sexual Orientation Not on file documented as of this encounter Plan of Treatment Not on file documented as of this encounter Visit Diagnoses Not on filedocumented in this encounter Care Teams South Asian History Professor Relationship Specialty Start Date End Date Zhang Larson APRN [address] [place] [address] PCP - General Family Medicine 11/21/18 documented as of this encounter
--- OUTSIDE RECORDS SUMMARY | 2024-05-19 10:27 | XMS_ITS | Encounter Summary ---
Author Organization [facility] Address [phone] [facility] [place] [address] Care Team Providers Care Metal Ceiling Hanger Name Role Phone Pcp, Unknown Primary Care Provider Ruslan Lopez MD Primary Care Provider [phone] Encounter Details Date Type Department Care Team (Late st Contact Info) Description 08/28/2022 Transcribe Orders Virtual Department [address] [place] [address] Ruslan Arnold MD [address] [place] [address] Elevated LFTs (Primary Dx) Social History Tobacco [...] chemistry documented in this encounter Care Teams Metal Ceiling Hanger Relationship Specialty Start Date End Date Pcp, Unknown PCP - General 04/02/22 05/20/23 Ruslan Arnold MD [address] [place] [address] PCP - General Family Medicine 05/21/23 documented as of this encounter Additional Source Comments The information contained in this document represents components of the legal health record. It is not the complete legal health record.[facility]
--- OUTSIDE RECORDS SUMMARY | 2024-05-19 10:27 | XMS_ITS | Encounter Summary ---
Author Organization [facility] Address [address] [place] [address] Care Team Providers Care Rec Therapist Name Role Phone Zhang Larson APRN Primary Care Provider Encounter Details Date Type Department Care Team ([facility] st Contact Info) Description 02/09/[address] [facility] [address] [place] [address] Nayana Alves MD [address] [place] [address] Social History Tobacco Use Types Packs/Day Years [...] on filedocumented in this encounter Care Teams Rec Therapist Relationship Specialty Start Date End Date Zhang Larson APRN [address] [place] [address] PCP - General Family Medicine 11/21/18 documented as of this encounter
--- OUTSIDE RECORDS SUMMARY | 2024-05-19 10:27 | XMS_ITS | Clinical Summary ---
Author Organization [facility] Address [address] [place] [address] Care Team Providers Care Drug Abuse Technician Name Role Phone Neo Zhang Arron GREENBERG Primary Care Provider Allergies Active Allergy Reactions Criticality Noted Date [...] injection Infuse into a venous catheter. Active cuqhmd-yyvwhlfjz-djju esium sulfates (SUPREP BOWEL PREP KIT) 17.5-3.13-1.6 [...] 12/28/2020 9:00 AM EDT THINPREP PAP TEST (STATOR TESTER) WITH HPV REFLEX, GC/CT Routine 08/11/2020 7:56 PM EDT HEPATITIS C VIRUS (HCV) ANTIBODY Routine 08/11/2020 9:46 AM EDT from Last 3 Months or Most Recently Relevant to Health Maintenance Results * HIV 1/2 Ag/Ab CMIA Reflex to Confirmation (12/28/2020 9:00 AM EDT) HIV Ag/Ab, 4th Gen Non-Reacti ve Non-Reacti ve [facility] CT LAB Comment: Results show no evidence of infection by HIV 1/2. If clinically indicated, repeat CMIA or test by nucleic acid amplification. Other 12/28/2020 9:00 AM EDT 12/28/2020 9:07 PM EDT Narrative [facility] CT LAB - 12/29/2020 11:03 AM EDT FASTING:UNKNOWN Zoya De La Torre DO LAB BLOOD ORDERABLE S [facility] CT LAB [address] [place], [place] * ThinPrep Pap Test (Stoneworking Sander) with HPV Reflex, GC/CT (08/11/2020 7:56 PM EDT) Report Report [facility] CT LAB Comment: Final Gynecological Cytology Report ThinPrep Pap Test with HPV Reflex, GC/Chlamydia SPECIMEN ADEQUACY: SATISFACTORY FOR EVALUATION; ENDOCERVICAL/TRANSFORMATION ZONE COMPONENT PRESENT. INTERPRETATION: NEGATIVE FOR INTRAEPITHELIAL LESION OR MALIGNANCY. Electronically Signed: ??Zeenat Sultana CT (ASCP) Electronically Signed: ??Maile Bañuelos CT (ASCP) CLINICAL INFORMATION: LMP: NG Specimen Source: ??Cervix, Endocervix CPT Codes: 65297 ICD Codes: Z34.90 Other 08/11/2020 7:56 PM EDT 08/11/2020 9:11 PM EDT Zoya Parnellriele DO PATHOLOGY/CYTOLOGY ORDERABLES [facility] LAB [address] [place], [place] * Hepatitis C Virus (HCV) Antibody (08/11/2020 9:46 AM EDT) Hepatitis C Antibody 0.28 Non-Reacti ve Non-Reacti ve [facility] CT LAB Other 08/11/2020 9:46 AM EDT 08/11/2020 8:54 PM EDT Zoya Parnellriele LAB BLOOD ORDERABLE S [facility] CT LAB [address] [place], [place] from Last 3 Months or Most Recently Relevant to Health Maintenance Care Teams Drug Abuse Technician Relationship Specialty Start Date End Date Zhang Larson, RUBBER PRESS OPERATOR [address] [place] [address] PCP - General Family Medicine 11/21/18
--- OUTSIDE RECORDS SUMMARY | 2024-05-19 10:27 | XMS_ITS | Encounter Summary ---
Author Organization [facility] Address [address] [place] [address] Care Team Providers Care Smeller Name Role Phone Zhang Larson APRN Primary Care Provider Encounter Details Date Type Department Care Team ([facility] st Contact Info) Description 02/09/[address] [facility] [address] [place] [address] Nayana Alves MD [address] [place] [address] Social History Tobacco Use Types Packs/Day Years [...] on filedocumented in this encounter Care Teams Smeller Relationship Specialty Start Date End Date Zhang Larson APRN [address] [place] [address] PCP - General Family Medicine 11/21/18 documented as of this encounter
--- OUTSIDE RECORDS SUMMARY | 2024-05-19 10:27 | XMS_ITS | Clinical Summary ---
Author Organization [facility] Address [address] [place] [address] Care Team Providers Care Outside Deliverer Name Role Phone Preston Garcia MD Primary Care Provider [phone] Allergies Active Allergy Reactions Criticality Noted Date Comments Hydromorphone Hives High 02/24/2021 Hives, including mouth Ketorolac Tromethamine Anaphylaxis,Hives ,It cruzito,Palpitations,S hortness Of Breath,Swelling High 11/15/2020 Loteprednol-Tobramycin Rash Low 10/28/2017 Moxifloxacin Swelling 10/28/2017 Eye drops only Secukinumab Rash Low 04/25/2016 Medications Medication Sig Dispensed Refills Start Date End Date Status Ypuypqpy-Mwt-Qk-FA (PRE- PO) Take by mouth. 0 Active [...] this topic Medical Devices Implanted Type Area Geographic Information Systems Engineer Device Identifier Shelf Expiration Date Model / Serial / Lot Hemostat Celulos 4 3x4in Oxydized Pedi Sz [facility] [id number] - [id number] Implanted:Qty : 1 on 02/23/2021 by Ester Hewitt MD at [facility] and Med Hemostatic Agent N/A: Uterus [facility] [employer] 10/22/2024 1943 / / [id number] Advance Directives For more information, please contact: [phone] Latest Code Status on File Code Status Date Activated Date Inactivated Comments Full Code 02/22/2021 4:07 PM 02/27/2021 2:21 AM This code status was ascertained in the following way: discussion with patient . Care Teams Outside Deliverer Relationship Specialty Start Date End Date Preston Garcia MD [address] [place] [phone] PCP - General Emergency Medicine 07/21/20
--- OUTSIDE RECORDS SUMMARY | 2024-05-19 10:27 | XMS_ITS | Clinical Summary ---
Author Organization [facility] Address [address] [place] [address] Care Team Providers Care Heat Treater Name Role Phone Preston Garcia MD Primary Care Provider [phone] Surgical History Surgery Date Site/Laterality Comments OTHER SURGICAL HISTORY Left 2004, Right 2007 PROCEDURE:Sagital Band reconstruction of bilateral ring finger tendons;COMMENT:for trigger finger SECTION 02/23/2021 N/A PROCEDURE: SECTION;COMMENT:Procedure: OB SECTION; Surgeon: Ester Hewitt MD; Location: [facility] DELIVERY ROOM; Service: Obstetrics; Laterality: [...] this topic Medical Devices Implanted Type Area Community Health Education Coordinator Device Identifier Shelf Expiration Date Model / Serial / Lot Hemostat Celulos 4 3x4in Oxydized Pedi Sz [facility] [id number] Implanted:Qty : 1 on 02/23/2021 by Ester Hewitt MD Implants N/A: Uterus [employer] 10/22/20241942 / / [id number] Care Teams Heat Treater Relationship Specialty Start Date End Date Preston Garcia MD [address] [place] [address], [place] [address] PCP - General Emergency Medicine 4/29/21
--- OUTSIDE RECORDS SUMMARY | 2024-05-19 10:27 | XMS_ITS | Encounter Summary ---
Author Organization [facility] Address [address] [place] [address] Care Team Providers Care Funding Specialist Name Role Phone Zhang Larson APRN Primary Care Provider Encounter Details Date Type Department Care Team (Late st Contact Info) Description 02/03/2019 Scanned Document [facility] [address] [place] [address] [place] [address] Ford Darden DO [address] [place] [address] Social History Tobacco Use Types Packs/Day Years [...] on filedocumented in this encounter Care Teams Funding Specialist Relationship Specialty Start Date End Date Zhang Larson APRN [address] [place] [address] PCP - General Family Medicine 11/21/18 documented as of this encounter
--- OUTSIDE RECORDS SUMMARY | 2024-05-19 10:28 | XMS_ITS | Encounter Summary ---
Author Organization [facility] Address [phone] [facility] [place] [address] Care Team Providers Care Industrial Registered Nurse Name Role Phone Ruslan Arnold MD Primary Care Provider [phone] Encounter Details Date Type Department Care Team (Late st Contact Info) Description 07/16/2023 Transcribe Orders [facility] Specimen Processing [address] [place] [address] Ruslan Arnold MD [address] [place] [address] Social History Tobacco Use Types Packs/Day Years [...] on filedocumented in this encounter Care Teams Industrial Registered Nurse Relationship Specialty Start Date End Date Ruslan Arnold MD [address] [place] [address] PCP - General Family Medicine 05/21/23 documented as of this encounter Additional Source Comments The information contained in this document represents components of the legal health record. It is not the complete legal health record.[facility]
[2024-05-19 18:28] LABS: Alanine Aminotransferase 63 U/L (0-31); Albumin Level 4.1 g/dL (3.5-5.0); Alkaline Phosphatase 87 U/L (39-117); Aspartate Amino Transferase 39 U/L (5-31); Bilirubin Direct 0.2 mg/dL (0.0-0.5); Bilirubin Total 0.5 mg/dL (0.0-1.0); Total Protein 7.5 g/dL (6.5-8.0)
[2024-05-20 08:57] LABS: HBS Num1 7.22 mIU/mL (0-7.99); HBc Num1 0.17 S/CO (0.00-0.79); HBsAGNum1 0.36 S/CO (0.00-0.99); Hepatitis B Core Antibody Nonreactive (Nonreactive); Hepatitis B Surface Antigen Negative (Negative); ~HepC Num1 0.25 S/CO (0.00-0.79); ~Hepatitis B Surface Antibody NONREACTIVE (Nonreactive); ~Hepatitis C Antibody Nonreactive (Nonreactive)
== END 2024-05-19 08:29 | disposition home or self-care (01) ==
LOC: HO.HKASLDS 08:28
PROVIDERS: PCP Family Medicine; Visit Provider Internal Medicine Rheumatology
DX: Z79.899 Other long term (current) drug therapy (principal); L40.50 Arthropathic psoriasis, unspecified
CPT/HCPCS: 36415; 80076; 86704; 86706; 86803; 87340

== ENCOUNTER 2024-07-02 14:30 | Outpatient (AMB) | payer OTHER, SELFPAY ==
--- NOTE | 2024-07-02 14:39 | A.OFFVIS_ITS ---
Vital Signs 07/02/24 14:42 Height 5 ft 3 in Weight 141 lb 1.533 oz BMI 25.0 BP 110/70 Blood Pressure Location Rt brachial Position Sitting Pulse 77 Pulse Source Pulse Oximeter Pulse Oximetry (%) 99 Oxygen Delivery Method Room Air Intake Visit Reasons: discuss treatment (scheduled per MD req) Intake Note: other options for meds Allergies hydromorphone [From Dilaudid] Allergy (Intermediate, Verified 07/02/24 14:40) Anaphylaxis ketorolac [From Toradol] Allergy (Intermediate, Verified 07/02/24 14:40) Anaphylaxis cocentyx Allergy (Mild, Uncoded 02/13/24 08:37) Rash moxifloxacin Adverse Reaction (Mild, Uncoded 02/13/24 08:37) Swelling HPI HPI discuss treatment (scheduled per MD req): Details: She is 9 weeks . In the last week she started experiencing left SI joint pain. She is having pain in her back with prolonged sitting. Psoriasis is flaring in her chest in between her breasts, eyelids, navel. No hand symptoms or stiffness. Last Taltz injection was 4 weeks ago. [facility], [facility] Surgical History H/O colonoscopy Review of Systems Const All systems reviewed & are unremarkable except as noted in HPI and below Physical Exam Vital Signs: Last Vital Signs Pulse 77 07/02/24 14:42 BP 110/70 07/02/24 14:42 Pulse Ox 99 07/02/24 14:42 Oxygen Delivery Method Room Air 07/02/24 14:42 BMI result Body Mass Index 25.0 Const Other: General: Comfortable CVS: RRR Respiratory: clear to auscultation bilaterally. Good respiratory effort Skin: Psoriasis is flaring under eyelids, navel and in between breasts MSK: No tender joints or synovitis present. Good range of motion of upper extremity and lower extremity. Negative MIKEL. Left SI joint tenderness on palpation. Left trochanteric bursa tenderness found. Assessment & Plan Assessment & Plan (1) Psoriatic arthritis: Comment: She is having inflammatory back pain and enthesitis (left trochanteric bursitis) off of Taltz. She is 9 weeks . We discussed treatment with Humira during . There is risk of transmission of antibodies in utero in 3rd trimester including adalimumab increasing infection risk of the fetus after delivery. Off of DMARD therapy, patient's psoriasis and psoriatic arthritis we will be uncontrolled leading to disability, suffering and possible poor outcomes. With analysis of risks and benefits, we discussed that it would be best for patient to continue Humira during the duration of her whole if Humira controls her autoimmune diseases. If left trochanteric bursa pain or SI joint pain becomes uncontrolled, there is an option for targeted treatment with cortisone injection. Patient will hold off at this time. Rheumatology history: psoriatic arthritis HLA B27 positivity. Psoriasis diagnosed at age 10 months, with psoriatic developing at 8 years of age with inflammatory back pain. Sacroiliitis on initial presentation. Humira initially was started but discontinued due to fears of needles when she was 10 years old. She failed Enbrel. Remicade was effective but it was discontinued by towel distributor at the time for unknown reason and patient flared. Cosentyx caused rash. Otezla caused migraines. Simponi helps psoriatic arthritis but not psoriasis. Cimzia initially caused skin infections. Reintroduction of Cimzia 04/13/2020 due to without side effects but then led to secondary treatment failure for psoriasis. Taltz started 2023 by Dermatology. Initially tells did not control inflammatory arthritis. She received a prednisone course in August, which relieved inflammatory arthritis but exacerbated psoriasis. She is now on topical agent roflumilast the last 3 weeks that has been controlling her psoriasis except on eyelids. Sulfasalazine was started due to stiffness in hands, which patient took for a month but did not have labs done for drug monitoring to enable continuation of treatment. At this time she does not have any more stiffness. Taltz discontinue 05/2024 when she found out she was . Code(s): L40.50 - Arthropathic psoriasis, unspecified Category: Medical Plan: Baseline labs ordered Humira PA after lab results are back Patient has an appointment with nanotechnology engineering technician next week. I have asked her to obtain a contact of the artifacts conservator that will be involved in her care for communication. Return to clinic in 3 months Orders: Orders Hepatitis B Core Antibody Today L40.50 - Arthropathic psoriasis, unspecified Aspartate Amino Transferase Today Z79.60 - retirement (current) use of unspecified immunomodulators and immunosuppressants T Spot TB Today L40.50 - Arthropathic psoriasis, unspecified Hepatitis B Surface Antigen Today L40.50 - Arthropathic psoriasis, unspecified Complete Blood Count Auto Diff Today Z79.60 - reimbursement rep (current) use of unspecified immunomodulators and immunosuppressants Creatinine Today Z79.60 - retirement (current) use of unspecified immunomodulators and immunosuppressants Alanine Aminotransferase Today Z79.60 - reimbursement rep (current) use of unspecified immunomodulators and immunosuppressants Erythrocyte Sedimentation Rate Today L40.50 - Arthropathic psoriasis, unspecified C Reactive Protein Today L40.50 - Arthropathic psoriasis, unspecified Coding Level of Care Code Est Pt Level 4 (61839) Complex EM visit Add On G2211 Diagnoses Psoriatic arthritis L40.50
[2024-07-02 14:42] VITALS: BP 110/70; PULSE 77; O2SAT 99; BMI 25.0
--- OUTSIDE RECORDS SUMMARY | 2024-07-02 17:13 | XMS_ITS | Encounter Summary ---
Author Organization [facility] Address [address] [facility] [address] [place] [address] Phone Care Team Providers Care Foreman/Project Manager Name Role Phone Ruslan Arnold MD Primary Care Provider [phone] Encounter Details Date Type Department Care Team (Latest Contact Info) Description 07/17/2023 Transcribe Orders [facility] Specimen Processing [address] [place] [address] Светлана Bond PA [address] [facility] [address] [place] [address] Encounter for long-term (current) use of other [...] Primary documented in this encounter Care Teams Foreman/Project Manager Relationship Specialty Start Date End Date Ruslan Arnold MD [address] [place] [id number] [email or web address] PCP - General Family Medicine 05/21/23 documented as of this encounter Additional Source Comments The information contained in this document represents components of the legal health record. It is not the complete legal health record.[facility]
--- OUTSIDE RECORDS SUMMARY | 2024-07-02 17:13 | XMS_ITS | Data Portability ---
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 formula.EPS = 6 SATHYA SUAZO DO 175 [facility], [address] [place] [address], [phone], [facility] 03/07/2021 12:13:10 04/04/2021 text/html [facility] VisitReported bypatient.Onset/Blas in02/23/21 Associated Symptoms:no abnormal bleeding; [...] supplementation, going well RAUL FOY MD [address], [address], [facility] 04/04/2021 09:02:32 04/26/2021 text/html pt. presents wit h increased stabbing breast pain with pumping. Started over the weekend when baby nursed without breast yarbrough and notices blisters on breast. now only pumping and notices shooting pain prior to pumping. no myalgias or fevers. Thinks baby has white lesions on mouth but not sure LANA CARSON MD [address], [address], [facility] 04/26/2021 10:37:47 05/04/2021 text/html Pt in the middle of course of diflucan and augmentin. States the mastitis improved within 24-48 hours, but she still has stabbing breast pain with pumping. Also noticing scabs on her nipples that do not come off. Very tender. SATHYA SUAZO DO 175 [facility], [address] [place] [address], [phone], [facility] 05/04/2021 15:45:39 OBGyn Episode Ob Episode Information Episode Created Date Number of Fetuses Patient Bloodtype Patient rh Status Prepregnancy Weight lbs Domestic Partner Domestic Partner Phone Father Name Business Performance Manager Status 08/12/19 21 1 A Positive CLOSED Fetus Data First Name Last Name Admitted to NICU Weight (g) Sex Living Outcome Pediatric Complications Fetus ID Race Codes Race Delivery Type Eula sifuentes 3345.24 1 M Prematur e [id number] - Primary Problems Problem Notes Problem Name Start Date End Date Resolution Snomed Code Not e Bicornuate uterus 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 s/ p MFM, increased risk PTD, IUGR, malpresentatino -> growth USN in 3rd tri Liver enzymes level above reference range 186294494 see note from 3 4wga Low lying placenta 005550934 R epeat USN at 32 wga (resolved @ 33wga) Psoriatic arthritis 010506364 worsening in , Per MFM needs NSTs [...] Latest Days Gestation 0 03/21/20 21 0 Pre-roland Flowsheet Flowsheet Date 08/11/2020 Mendoza Score Blood Edema Fundus Height Fundus Units Glucose Ketones Leukocytes Nitrite Labor Signs Protein Cervic Dilation Cervic Effacement Cervic Station Type Weight in lbs Pre/Post Dialysis Refused Weight 143.124812289765 BP Diastolic BP Location Tested BP Systolic [...] Weight in lbs Pre/Post Dialysis Refused Weight 141.992296179950 BP Diastolic BP Location Tested BP Systolic [...] Weight in lbs Pre/Post Dialysis Refused Weight 142.023767972536 BP Diastolic BP Location Tested BP Systolic BP Type 76 110 Fetus Heart Rate Present A 150 Fetus Movement A Yes Comments N/v improved. Studying immun ology at [facility]. Rvw'd nml NIPT and carrier screening. RTO 4wks for OBV and MSAFP. Flowsheet Date 10/19/2020 Mendoza Score Blood Edema Fundus Height Fundus Units Glucose Ketones Leukocytes Nitrite Labor Signs Protein Cervic Dilation Cervic Effacement Cervic Station neg 18 cm none negative none neg Type Weight in lbs Pre/Post Dialysis Refused Weight 148.697565035217 BP Diastolic BP Location Tested BP Systolic BP Type 72 116 Fetus Heart Rate Present A 145 Fetus Movement A Yes Comments Doing well. Worried about he r back issues w/ psoriatic arthritis and delivery. She will see her oxyacetylene welder in consult about mode of delivery. Has [...] Weight in lbs Pre/Post Dialysis Refused Weight 150.668489088769 BP Diastolic BP Location Tested BP Systolic BP Type 60 100 Fetus Heart Rate Present A 140 Present Fetus Movement A Yes Comments Doing well. +FM. Met with rh eumatologist. No clear answer to mode of delivery. Pt with back and hip pain with flares of arthritis. Very concerned about group home pain with vaginal delivery. Reviewed r/b to delivery. She will discuss with . Reviewed labs next visit. Flowsheet Date 12/15/2020 Mendoza Score Blood Edema Fundus Height Fundus Units Glucose Ketones Leukocytes Nitrite Labor Signs Protein Cervic Dilation Cervic Effacement Cervic Station neg none 26 cm none negative none neg Type Weight in lbs Pre/Post Dialysis Refused Weight 153.243791417849 BP Diastolic BP Location Tested BP Systolic [...] Weight in lbs Pre/Post Dialysis Refused Weight 153.733855722478 BP Diastolic BP Location Tested BP Systolic [...] Weight in lbs Pre/Post Dialysis Refused Weight 156.778859111512 BP Diastolic BP Location Tested BP Systolic [...] Weight in lbs Pre/Post Dialysis Refused Weight 157.428130574003 BP Diastolic BP Location Tested BP Systolic [...] Weight in lbs Pre/Post Dialysis Refused Weight 160.992355687997 BP Diastolic BP Location Tested BP Systolic [...] Weight in lbs Pre/Post Dialysis Refused Weight 161.143856601339 BP Diastolic BP Location Tested BP Systolic [...] Weight in lbs Pre/Post Dialysis Refused Weight 162.161778698414 BP Diastolic BP Location Tested BP Systolic [...] Domestic Partner Domestic Partner Phone Father Name Business Performance Manager Status 07/23/19 21 1 CLOSED Fetus Data First Name Last Name Admitted to NICU Weight (g) Sex Living Outcome Pediatric Complications Fetus ID Race Codes Race Delivery Type , Spontane ous [id number] Fermin Calculation Initial Fermin Date Initial Exam [...]
--- OUTSIDE RECORDS SUMMARY | 2024-07-02 17:13 | XMS_ITS | Encounter Summary ---
Author Organization [facility] Address [address] [place] [address] Care Team Providers Care Plant Protection Officer Name Role Phone Zhang Larson APRN Primary Care Provider Encounter Details Date Type Department Care Team ([facility] st Contact Info) Description 02/09/[address] [facility] [address] [place] [address] Nayana Alves MD [address] [place] [address] Social History Tobacco Use Types Packs/Day Years [...] on filedocumented in this encounter Care Teams Plant Protection Officer Relationship Specialty Start Date End Date Zhang Larson APRN [address] [place] [address] PCP - General Family Medicine 11/21/18 documented as of this encounter
--- OUTSIDE RECORDS SUMMARY | 2024-07-02 17:13 | XMS_ITS | Encounter Summary ---
Author Organization [facility] Address [address] [place] [address] [place] [address] Phone Care Team Providers Care Marbleizing Machine Tender Name Role Phone Ruslan Arnold MD Primary Care Provider [phone] Encounter Details Date Type Department Care Team (Late st Contact Info) Description 07/16/2023 Transcribe Orders [facility] Specimen Processing [address] [place] [address] Ruslan Arnold MD [address] [place] [address] [email or web address] Social History Tobacco Use Types Packs/Day Years [...] on filedocumented in this encounter Care Teams Marbleizing Machine Tender Relationship Specialty Start Date End Date Ruslan Arnold MD [address] [place] [address] [email or web address] PCP - General Family Medicine 05/21/23 documented as of this encounter Additional Source Comments The information contained in this document represents components of the legal health record. It is not the complete legal health record.[facility]
--- OUTSIDE RECORDS SUMMARY | 2024-07-02 17:13 | XMS_ITS | Clinical Summary ---
Author Organization [facility] Address [address] [place] [address] Care Team Providers Care Data Consultant Name Role Phone Preston Garcia MD Primary Care Provider [phone] Allergies Active Allergy Reactions Criticality Noted Date Comments Hydromorphone Hives High 02/24/2021 Hives, including mouth Ketorolac Tromethamine Anaphylaxis,Hives ,It cruzito,Palpitations,S hortness Of Breath,Swelling High 11/15/2020 Loteprednol-Tobramycin Rash Low 10/28/2017 Moxifloxacin Swelling 10/28/2017 Eye drops only Secukinumab Rash Low 04/25/2016 Medications Medication Sig Dispensed Refills Start Date End Date Status Tskdupcd-Ngj-Ge-FA (PRE-IRWIN PO) Take by mouth. 0 Active certolizumab [...] this topic Medical Devices Implanted Type Area Smoking Pipe Driller And Threader Device Identifier Shelf Expiration Date Model / Serial / Lot Hemostat Celulos 4 3x4in Oxydized Pedi Sz [facility] [id number] - [id number] Implanted:Qty : 1 on 02/23/2021 by Ester Hewitt MD at [facility] and Med Hemostatic Agent N/A: Uterus [facility] [employer] 10/22/2024 1943 / / [id number] Advance Directives For more information, please contact: [phone] Latest Code Status on File Code Status Date Activated Date Inactivated Comments Full Code 02/22/2021 4:07 PM 02/27/2021 2:21 AM This code status was ascertained in the following way: discussion with patient . Care Teams Data Consultant Relationship Specialty Start Date End Date Preston Garcia MD [address] [place] [phone] PCP - General Emergency Medicine 07/21/20
--- OUTSIDE RECORDS SUMMARY | 2024-07-02 17:13 | XMS_ITS | Clinical Summary ---
Author Organization [facility] Address [address] [place] [address] Care Team Providers Care Typing Element Machine Operator Name Role Phone Preston Garcia MD Primary Care Provider [phone] Surgical History Surgery Date Site/Laterality Comments OTHER SURGICAL HISTORY Left 2004, Right 2007 PROCEDURE:Sagital Band reconstruction of bilateral ring finger tendons;COMMENT:for trigger finger SECTION 02/23/2021 N/A PROCEDURE: SECTION;COMMENT:Procedure: OB SECTION; Surgeon: Ester Hewitt MD; Location: [facility] DELIVERY ROOM; Service: Obstetrics; Laterality: N/A; Medical History Medical History Date Comments Psoriasis DX:Psoriasis Psoriatic arthritis (CMS/HCC V24, CMS/HCC V28) DX:Psoriatic arthritis (HCC) Functional constipation DX:Funct ional constipation;COMMENT:until [...] 02/23/2021, 02/22/2021, Additional history exists Influenza Vaccine (Season Ended) 2024 HIB Vaccines Aged Out No longer eligi [...] age to complete this topic Meningococcal B Vaccine Aged Out No l onger eligible based on patient's age to complete [...] this topic Medical Devices Implanted Type Area School Superintendent Device Identifier Shelf Expiration Date Model / Serial / Lot Hemostat Celulos 4 3x4in Oxydized Pedi Sz [facility]i [id number] Implanted:Qty : 1 on 02/23/2021 by Ester Hewitt MD Implants N/A: Uterus [employer] 10/22/20241942 / / [id number] Care Teams Typing Element Machine Operator Relationship Specialty Start Date End Date Preston Garcia MD [address] [place] [address] PCP - General Emergency Medicine 07/21/20
--- OUTSIDE RECORDS SUMMARY | 2024-07-02 17:13 | XMS_ITS | Encounter Summary ---
Author Organization [facility] Address [address] [place] [address] Care Team Providers Care Equipment Maintenance Technician Name Role Phone Zhang Larson APRN Primary Care Provider [phone] Encounter Details Date Type Department Care Team ([facility] st Contact Info) Description 10/30/2018 Scanned Document [facility] [address] [facility], [address] [place] [address] Derrick Irvin MD 195 [facility] [address] [place] [address] Social History Tobacco Use Types Packs/Day Years Used Date Smoking Tobacco: Never Assessed Sex and Gender Information Value Date Recorded Sex Assigned at Not on file Gender Identity Not on file Sexual Orientation Not on file documented as of this encounter Plan of Treatment Not on file documented as of this encounter Visit Diagnoses Not on filedocumented in this encounter Care Teams Equipment Maintenance Technician Relationship Specialty Start Date End Date Zhang Larson APRN [address] [place] [address] PCP - General Family Medicine 11/21/18 documented as of this encounter
--- OUTSIDE RECORDS SUMMARY | 2024-07-02 17:13 | XMS_ITS | Encounter Summary ---
Author Organization [facility] Address [address] [place] [address] Care Team Providers Care Industrial Fabric Cutter Name Role Phone Zhang Larson APRN Primary Care Provider Encounter Details Date Type Department Care Team ([facility] st Contact Info) Description 02/09/[address] [facility] [address] [place] [address] Nayana Alves MD [address] [place] [address] Social History Tobacco Use Types Packs/Day Years [...] filedocumented in this encounter Care Teams Industrial Fabric Cutter Relationship Specialty Start Date End Date Zhang Larson APRN [address] [place] [address] PCP - General Family Medicine 11/21/18 documented as of this encounter
--- OUTSIDE RECORDS SUMMARY | 2024-07-02 17:13 | XMS_ITS | Clinical Summary ---
Author Organization [facility] Address [address] [place] [address] Phone Care Team Providers Care Billing Representative Name Role Phone Ruslan Arnold MD Primary Care Provider [phone] Allergies Active Allergy Reactions Criticality Noted Date [...] COVID-19 VACCINE (#1) 07/28/2000 DEPRESSION SCREENING 2007 HIV ONE-TIME SCREENING (18-6 5 YEARS) 07/28/2013 PNEUMOCOCCAL VACCINES (0-49 years) (1 of 2 [...] Medical Devices Not on file Care Teams Billing Representative Relationship Specialty Start Date End Date Ruslan Arnold MD [address] [place] [address] [email or web address] PCP - General Family Medicine 05/21/23 Additional Source Comments The information contained in this document represents components of the legal health record. It is not the complete legal health record.[facility]
--- OUTSIDE RECORDS SUMMARY | 2024-07-02 17:13 | XMS_ITS | Encounter Summary ---
Author Organization [facility] Address [address] [place] [address] Phone Care Team Providers Care Global Risk Management Director Name Role Phone Pcp, Unknown Primary Care Provider Ruslan Lopez MD Primary Care Provider [phone] Encounter Details Date Type Department Care Team (Late st Contact Info) Description 08/28/2022 Transcribe Orders Virtual Department [address] [place] [address] Ruslan Arnold MD [address] [place] [address] Elevated LFTs (Primary Dx) Social History Tobacco [...] chemistry documented in this encounter Care Teams Global Risk Management Director Relationship Specialty Start Date End Date Pcp, Unknown PCP - General 04/02/22 05/20/23 Ruslan Arnold MD [address] [place] [address] PCP - General Family Medicine 05/21/23 documented as of this encounter Additional Source Comments The information contained in this document represents components of the legal health record. It is not the complete legal health record.[facility]
--- OUTSIDE RECORDS SUMMARY | 2024-07-02 17:13 | XMS_ITS | Encounter Summary ---
Author Organization [facility] Address [address] [place] [address] Care Team Providers Care Radiation Safety Officer Name Role Phone Zhang Larson APRN Primary Care Provider [phone] Encounter Details Date Type Department Care Team (Late st Contact Info) Description 02/03/2019 Scanned Document [facility] [address] [place] [address] [place] [address] Ford Darden DO [address] [place] [address] Social History Tobacco Use Types Packs/Day Years [...] on filedocumented in this encounter Care Teams Radiation Safety Officer Relationship Specialty Start Date End Date Zhang Larson APRN [address] [place] [address] PCP - General Family Medicine 11/21/18 documented as of this encounter
--- OUTSIDE RECORDS SUMMARY | 2024-07-02 17:13 | XMS_ITS | Clinical Summary ---
Author Organization [facility] Address [address] [place] [address] Care Team Providers Care Low Pressure Boiler Tender Name Role Phone Neo Zhang Arron GREENBERG [...] injection Infuse into a venous catheter. Active pknmtz-jfsziqqez-uzft esium sulfates (SUPREP BOWEL PREP KIT) 17.5-3.13-1.6 [...] 12/28/2020 9:00 AM EDT THINPREP PAP TEST (TRAFFIC SERGEANT) WITH HPV REFLEX, GC/CT Routine 08/11/2020 7:56 PM EDT HEPATITIS C VIRUS (HCV) ANTIBODY Routine 08/11/2020 9:46 AM EDT from Last 3 Months or Most Recently Relevant to Health Maintenance Results * HIV 1/2 Ag/Ab CMIA Reflex to Confirmation (12/28/2020 9:00 AM EDT) HIV Ag/Ab, 4th Gen Non-Reacti ve Non-Reacti ve [facility] CT LAB Comment: Results show no evidence of infection by HIV 1/2. If clinically indicated, repeat CMIA or test by nucleic acid amplification. Other 12/28/2020 9:00 AM EDT 12/28/2020 9:07 PM EDT Narrative [facility] CT LAB - 12/29/2020 11:03 AM EDT FASTING:UNKNOWN Zoya De La Torre DO LAB BLOOD ORDERABLE S [facility] CT [facility] [address] [place], [place] * ThinPrep Pap Test (Hvac Controls Technician) with HPV Reflex, GC/CT (08/11/2020 7:56 PM EDT) Report Report [facility] CT LAB Comment: Final Gynecological Cytology Report ThinPrep Pap Test with HPV Reflex, GC/Chlamydia SPECIMEN ADEQUACY: SATISFACTORY FOR EVALUATION; ENDOCERVICAL/TRANSFORMATION ZONE COMPONENT PRESENT. INTERPRETATION: NEGATIVE FOR INTRAEPITHELIAL LESION OR MALIGNANCY. Electronically Signed: ??Zeenat Sultana CT (ASCP) Electronically Signed: ??Maile Bañuelos CT (ASCP) CLINICAL INFORMATION: LMP: NG Specimen Source: ??Cervix, Endocervix CPT Codes: 82365 ICD Codes: Z34.90 Other 08/11/2020 7:56 PM EDT 08/11/2020 9:11 PM EDT Zoya De La Torre DO LAB AMB PATH/CYTO O RDERABLES [facility] CT [facility] [address] [place], [place] * Hepatitis C Virus (HCV) Antibody (08/11/2020 9:46 AM EDT) Hepatitis C Antibody 0.28 Non-Reacti ve Non-Reacti ve S/[facility] CT LAB Other 08/11/2020 9:46 AM EDT 08/11/2020 8:54 PM EDT Zoya De La Torre DO LAB BLOOD ORDERABLE S Performing Organization Address City/[facility]/ZIP Co de Phone Number [facility] [address] [place], [place] from Last 3 Months or Most Recently Relevant to Health Maintenance Care Teams Low Pressure Boiler Tender Relationship Specialty Start Date End Date Zhang Larson APRN [address] [place] [address] PCP - General Family Medicine 11/21/18
== END 2024-07-02 15:06 | disposition home or self-care (01) ==
LOC: HO.RHES 14:31
PROVIDERS: PCP Family Medicine; Visit Provider Internal Medicine Rheumatology
DX: L40.50 Arthropathic psoriasis, unspecified (principal)
CPT/HCPCS: 99214

== ENCOUNTER 2024-07-02 14:30 | Outpatient (REF) | payer OTHER, SELFPAY ==
[2024-07-02 17:32] LABS: MANUAL DIFF FLAG NO
--- OUTSIDE RECORDS SUMMARY | 2024-07-02 17:34 | XMS_ITS | Encounter Summary ---
Author Organization [facility] Address [address] [place] [address] Care Team Providers Care Teaching Young Name Role Phone Zhang Larson APRN Primary Care Provider Encounter Details Date Type Department Care Team ([facility] st Contact Info) Description 02/09/[address] [facility] [address] [place] [address] Nayana Alves MD [address] [place] [address] Social History Tobacco Use Types Packs/Day Years [...] on filedocumented in this encounter Care Teams Teaching Young Relationship Specialty Start Date End Date Zhang Larson APRN [address] [place] [address] PCP - General Family Medicine 11/21/18 documented as of this encounter
--- OUTSIDE RECORDS SUMMARY | 2024-07-02 17:34 | XMS_ITS | Clinical Summary ---
Author Organization [facility] Address [address] [place] [address] Care Team Providers Care Family Services Assistant Name Role Phone Preston Garcia MD Primary Care Provider [phone] Surgical History Surgery Date Site/Laterality Comments OTHER SURGICAL HISTORY Left 2004, Right 2007 PROCEDURE:Sagital Band reconstruction of bilateral ring finger tendons;COMMENT:for trigger finger SECTION 02/23/2021 N/A PROCEDURE: SECTION;COMMENT:Procedure: OB SECTION; Surgeon: Ester Hewitt MD; Location: [facility] DELIVERY [facility]; Service: Obstetrics; Laterality: N/A; Medical [...] this topic Medical Devices Implanted Type Area Spring Encaser Device Identifier Shelf Expiration Date Model / Serial / Lot Hemostat Celulos 4 3x4in Oxydized Pedi Sz [facility] [id number] Implanted:Qty : 1 on 02/23/2021 by Ester Hewitt MD Implants N/A: Uterus [employer]N [employer] 10/22/20241942 / / [id number] Care Teams Family Services Assistant Relationship Specialty Start Date End Date Preston Garcia MD [address] [place] [address] PCP - General Emergency Medicine 07/21/20
--- OUTSIDE RECORDS SUMMARY | 2024-07-02 17:34 | XMS_ITS | Encounter Summary ---
Author Organization [facility] Address [address] [place] [address] Care Team Providers Care Post Tensioning Ironworker Name Role Phone Zhang Larson APRN Primary Care Provider Encounter Details Date Type Department Care Team ([facility] st Contact Info) Description 02/09/[address] [facility] [address] [place] [address] Nayana Alves MD [address] [place] [address] Social History Tobacco Use Types Packs/Day Years [...] on filedocumented in this encounter Care Teams Post Tensioning Ironworker Relationship Specialty Start Date End Date Zhang Larson APRN [address] [place] [address] PCP - General Family Medicine 11/21/18 documented as of this encounter
--- OUTSIDE RECORDS SUMMARY | 2024-07-02 17:35 | XMS_ITS | Clinical Summary ---
Author Organization [facility] Address [address] [place] [address] Care Team Providers Care Director Of Sustainability Programs Name Role Phone Preston Garcia MD Primary Care Provider [phone] Allergies Active Allergy Reactions Criticality Noted Date Comments Hydromorphone Hives High 02/24/2021 Hives, including mouth Ketorolac Tromethamine Anaphylaxis,Hives ,It cruzito,Palpitations,S hortness Of Breath,Swelling High 11/15/2020 Loteprednol-Tobramycin Rash Low 10/28/2017 Moxifloxacin Swelling 10/28/2017 Eye drops only Secukinumab Rash Low 04/25/2016 Medications Medication Sig Dispensed Refills Start Date End Date Status Hnunyaol-Gdu-Zq-FA (PRE-IRWIN PO) Take by mouth. 0 Active [...] this topic Medical Devices Implanted Type Area Information Technology Instructor Device Identifier Shelf Expiration Date Model / Serial / Lot Hemostat Celulos 4 3x4in Oxydized Pedi Sz [facility]-Ethi [id number] - [id number] Implanted:Qty : 1 on 02/23/2021 by Ester Hewitt MD at [facility] and Med Hemostatic Agent N/A: Uterus [facility] [employer] 10/22/2024 1943 / / [id number] Advance Directives For more information, please contact: [phone] Latest Code Status on File Code Status Date Activated Date Inactivated Comments Full Code 02/22/2021 4:07 PM 02/27/2021 2:21 AM This code status was ascertained in the following way: discussion with patient . Care Teams Director Of Sustainability Programs Relationship Specialty Start Date End Date Preston Garcia MD [address] [place] [phone] PCP - General Emergency Medicine 07/21/20
--- OUTSIDE RECORDS SUMMARY | 2024-07-02 17:35 | XMS_ITS | Encounter Summary ---
Author Organization [facility] Address [address] [place] [address] Care Team Providers Care Medication Nurse Name Role Phone Zhang Larson APRN Primary Care Provider [phone]- [phone] Encounter Details Date Type Department Care Team ([facility] st Contact Info) Description 10/30/2018 Scanned Document [facility] [address] [facility], [address] [place] [address] Derrick Irvin MD [address] [facility] [address] [place] [address] Social History Tobacco Use Types Packs/Day Years Used Date Smoking Tobacco: Never Assessed Sex and Gender Information Value Date Recorded Sex Assigned at Not on file Gender Identity Not on file Sexual Orientation Not on file documented as of this encounter Plan of Treatment Not on file documented as of this encounter Visit Diagnoses Not on filedocumented in this encounter Care Teams Medication Nurse Relationship Specialty Start Date End Date Zhang Larson APRN [address] [place] [address] PCP - General Family Medicine 11/21/18 documented as of this encounter
--- OUTSIDE RECORDS SUMMARY | 2024-07-02 17:35 | XMS_ITS | Encounter Summary ---
Author Organization [facility] Address [address] [place] [address] Care Team Providers Care Keno Terminal Operator Name Role Phone Zhang Larson APRN Primary Care Provider [phone]- [phone] Encounter Details Date Type Department Care Team (Late st Contact Info) Description 02/03/2019 Scanned Document [facility] [address] [place] [address] [place] [address] Ford Darden DO [address] [place] [address] Social History Tobacco Use Types Packs/Day Years [...] on filedocumented in this encounter Care Teams Keno Terminal Operator Relationship Specialty Start Date End Date Zhang Larson APRN [address] [place] [address] PCP - General Family Medicine 11/21/18 documented as of this encounter
--- OUTSIDE RECORDS SUMMARY | 2024-07-02 17:35 | XMS_ITS | Clinical Summary ---
Author Organization [facility] Address [address] [place] [address] Care Team Providers Care Health Service Worker Name Role Phone Neo Zhang Arron GREENBERG Primary Care Provider [phone] Allergies Active Allergy Reactions Criticality Noted Date [...] injection Infuse into a venous catheter. Active ybkfnv-wmuyetrsm-wuxk esium sulfates (SUPREP BOWEL PREP KIT) 17.5-3.13-1.6 [...] 12/28/2020 9:00 AM EDT THINPREP PAP TEST (METAL POLISHER AND BUFFER APPRENTICE) WITH HPV REFLEX, GC/CT Routine 08/11/2020 7:56 PM EDT HEPATITIS C VIRUS (HCV) ANTIBODY Routine 08/11/2020 9:46 AM EDT from Last 3 Months or Most Recently Relevant to Health Maintenance Results * HIV 1/2 Ag/Ab CMIA Reflex to Confirmation (12/28/2020 9:00 AM EDT) HIV Ag/Ab, 4th Gen Non-Reacti ve Non-Reacti ve [facility] Comment: Results show no evidence of infection by HIV 1/2. If clinically indicated, repeat CMIA or test by nucleic acid amplification. Other 12/28/2020 9:00 AM EDT 12/28/2020 9:07 PM EDT Narrative [facility] CT LAB - 12/29/2020 11:03 AM EDT FASTING:UNKNOWN Zoya De La Torre DO LAB BLOOD ORDERABLE S [facility] [address] [place], [place] * ThinPrep Pap Test (Wastewater Treatment Engineer) with HPV Reflex, GC/CT (08/11/2020 7:56 PM EDT) Report Report [facility] CT [facility] Comment: Final Gynecological Cytology Report ThinPrep Pap Test with HPV Reflex, GC/Chlamydia SPECIMEN ADEQUACY: SATISFACTORY FOR EVALUATION; ENDOCERVICAL/TRANSFORMATION ZONE COMPONENT PRESENT. INTERPRETATION: NEGATIVE FOR INTRAEPITHELIAL LESION OR MALIGNANCY. Electronically Signed: ??Zeenat Sultana CT (ASCP) Electronically Signed: ??Maile Bañuelos CT (ASCP) CLINICAL INFORMATION: LMP: NG Specimen Source: ??Cervix, Endocervix CPT Codes: 13507 ICD Codes: Z34.90 Other 08/11/2020 7:56 PM EDT 08/11/2020 9:11 PM EDT Zoya De La Torre DO LAB AMB PATH/CYTO O RDERABLES [facility] [address] [place], [place] * Hepatitis C Virus (HCV) Antibody (08/11/2020 9:46 AM EDT) Hepatitis C Antibody 0.28 Non-Reacti ve Non-Reacti ve [facility] CT [facility] Other 08/11/2020 9:46 AM EDT 08/11/2020 8:54 PM EDT Zoya De La Torre DO LAB BLOOD ORDERABLE S Performing Organization Address City/[facility]/ZIP Co de Phone Number [facility] CT [facility] [address] [place], [place] from Last 3 Months or Most Recently Relevant to Health Maintenance Care Teams Health Service Worker Relationship Specialty Start Date End Date Zhang Larson APRN [address] [place] [phone] PCP - General Family Medicine 11/21/18
[2024-07-02 17:50] LABS: Basophils Percent Auto 0.3 % (0-2); Eosinophils Absolute Auto 0.1 X10*3/uL (0.0-0.4); Eosinophils Percent Auto 1.1 % (0-4); Hematocrit 38.8 % (37.0-47.0); Hemoglobin 13.3 g/dl (12.0-16.0); Imm Gran Abs Auto 0.02 X10*3/uL (0.00-0.03); Imm Gran Pct Auto 0.3 % (0.0-0.4); Lymphocytes Absolute Auto 1.1 X10*3/uL (1.2-4.9); Lymphocytes Percent Auto 18.1 % (20-40); Mean Corpuscular HGB Conc 34.3 g/dl (31.0-35.0); Mean Corpuscular Hemoglobin 30.2 pg (27.0-33.0); Mean Corpuscular Volume 88.2 fL (80.0-98.0); Mean Platelet Volume 12.1 fL (9.4-12.3); Monocytes Absolute Auto 0.3 X10*3/uL (0.1-1.2); Monocytes Percent Auto 5.1 % (2-11); Neutrophils Absolute Auto 4.7 x10*3/uL (2.0-8.3); Neutrophils Percent Auto 75.1 % (45-73); Platelet Count 152 X10*3/uL (160-400); Red Cell Distribution Width 13.8 % (11.0-16.0); White Blood Count 6.3 X10*3/uL (4.8-10.8)
[2024-07-02 18:07] LABS: Alanine Aminotransferase 59 U/L (0-31); Aspartate Amino Transferase 30 U/L (5-31); C Reactive Protein 0.22 mg/dL (< or = 0.50); Estimated Glomerular Filt Rate > 60
[2024-07-02 18:50] LABS: Erythrocyte Sedimentation Rate 8 MM/HR (0-20)
[2024-07-03 04:26] LABS: HBc Num1 0.05 S/CO (0.00-0.79); HBsAGNum1 0.26 S/CO (0.00-0.99); Hepatitis B Core Antibody Nonreactive (Nonreactive); Hepatitis B Surface Antigen Negative (Negative)
[2024-07-05 19:49] LABS: TS Negative Control Passed; TS Panel A 0; TS Panel B 0; TS Positive Control Passed; TSpotTB Negative (Negative)
== END 2024-07-02 14:31 | disposition home or self-care (01) ==
LOC: HO.HKASLDS 14:30
PROVIDERS: PCP Family Medicine; Visit Provider Internal Medicine Rheumatology
DX: L40.50 Arthropathic psoriasis, unspecified (principal); Z79.60 Long term (current) use of unspecified immunomodulators and immunosuppressants
CPT/HCPCS: 36415; 82565; 84450; 84460; 85025; 85652; 86140; 86481; 86704; 87340

== ENCOUNTER → 2024-08-06 13:32 | Outpatient (BNVA) | payer OTHER, SELFPAY | PROVIDERS: PCP Family Medicine; Visit Provider Internal Medicine Rheumatology ==

== ENCOUNTER 2024-12-03 14:43 | Outpatient (AMB) | payer OTHER, SELFPAY ==
[2024-12-03 14:51] VITALS: PULSE 81; O2SAT 100; BMI 28.1
--- NOTE | 2024-12-03 14:51 | MHC.OFFVIS ---
Vital Signs 12/03/24 14:51 Height 5 ft 3 in Weight 158 lb 8.198 oz BMI 28.1 Pulse 81 Pulse Source Pulse Oximeter Pulse Oximetry (%) 100 Oxygen Delivery Method Room Air Intake Visit Reasons: 6 Months/MD Approved Intake Note: Patient presents today for follow up on psoriatic arthritis. Accompanied by: Self / Same As Patient Allergies hydromorphone (From Dilaudid) Allergy (Intermediate, Verified 12/03/24 14:52) Anaphylaxis ketorolac (From Toradol) Allergy (Intermediate, Verified 12/03/24 14:52) Anaphylaxis cocentyx Allergy (Mild, Uncoded 02/13/24 08:37) Rash moxifloxacin Adverse Reaction (Mild, Uncoded 02/13/24 08:37) Swelling HPI HPI 6 Months/MD Approved: Details: She is 30 weeks . Due date is February 05. She feels well. She was recently diagnosed with gestational diabetes a week ago. She is monitoring her blood sugars and her blood pressure. She is normotensive. She experiences SI joint pain on her left side 1 day before Humira is due. No new joint swelling. 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 She is receiving topical treatment from color shop helper. No recent infections. She is tolerating Humira. [facility] Surgical History H/O colonoscopy Physical Exam Vital Signs: Last Vital Signs Pulse 81 12/03/24 14:51 Pulse Ox 100 12/03/24 14:51 Oxygen Delivery Method Room Air 12/03/24 14:51 BMI result Body Mass Index 28.1 Const Other: General: Comfortable CVS: RRR Respiratory: clear to auscultation bilaterally. Good respiratory effort Skin: Psoriasis is flaring under eyelids, improved MSK: No tender joints or synovitis present. Good range of motion of upper extremity and lower extremity. Negative MIKEL. Bilateral SI joint tenderness on palpation left greater than right. Left trochanteric bursa tenderness found. Assessment & Plan Assessment & Plan (1) Psoriatic arthritis: Comment: Thirty weeks . Disease is controlled on Humira. She has left SI joint pain the day before Humira is due but it is manageable. We discussed continuing into 3rd trimester due to benefits of continued control disease and better outcomes for her and delivery. She understands the risks of possible immunosuppression of her baby due to maternal antibodies including Humira passing through the placenta in 3rd trimester, with continuing Humira in 3rd trimester. Benefits of continuing Humira outweigh the risks. She had mild thrombocytopenia in September, which resolved on most recent labs. LFTs have normalized 09/2024 labs. Rheumatology history: psoriatic arthritis HLA B27 positivity. Psoriasis diagnosed at age 10 months, with psoriatic developing at 8 years of age with inflammatory back pain. Sacroiliitis on initial presentation. Humira initially was started but discontinued due to fears of needles when she was 10 years old. She failed Enbrel. Remicade was effective but it was discontinued by president + publisher at the time for unknown reason and patient flared. Cosentyx caused rash. Otezla caused migraines. Simponi helps psoriatic arthritis but not psoriasis. Cimzia initially caused skin infections. Reintroduction of Cimzia 04/13/2020 due to without side effects but then led to secondary treatment failure for psoriasis. Taltz started 2023 by Dermatology. Initially tells did not control inflammatory arthritis. She received a prednisone course in August, which relieved inflammatory arthritis but exacerbated psoriasis. She is now on topical agent roflumilast the last 3 weeks that has been controlling her psoriasis except on eyelids. Sulfasalazine was started due to stiffness in hands, which patient took for a month but did not have labs done for drug monitoring to enable continuation of treatment. At this time she does not have any more stiffness. Taltz discontinue 05/2024 when she found out she was contributing to inflammatory back pain and enthesitis (left trochanteric bursitis). Code(s): L40.50 - Arthropathic psoriasis, unspecified Category: Medical Plan: Continue Humira 40 mg subcutaneous injection every 14 days Labs for drug monitoring on high-risk medication ordered for next month. Lab requisition given to patient to have done with labs ordered by her OB at [facility]. She is following with Maternal Medicine and her regular OB team weekly. She will continue to follow up with her color shop helper's at [facility] for management of eyelid psoriasis Return to clinic in 3 months Orders: Orders Complete Blood Count Auto Diff 1 Month Z79.899 - Other residential (current) drug therapy Alanine Aminotransferase 1 Month Z79.899 - Other residential (current) drug therapy Erythrocyte Sedimentation Rate 1 Month Z79.899 - Other residential (current) drug therapy Aspartate Amino Transferase 1 Month Z79.899 - Other rat exterminator (current) drug therapy Creatinine 1 Month Z79.899 - Other residential (current) drug therapy C Reactive Protein 1 Month Z79.899 - Other residential (current) drug therapy Medications: Changed From adalimumab (Humira(CF) Pen) First dose administration in office. Needs to schedule nurse teaching visit. Labs due 4 weeks after starting Humira. 40 mg (0.4 mL) subcut Q2W 2 ea 2RF To adalimumab (Humira(CF) Pen) 40 mg (0.4 mL) subcut Q2W 2 ea 2RF Coding Level of Care Code Est Pt Level 4 (17248) Complex EM visit Add On G2211 Diagnoses Psoriatic arthritis L40.50
--- OUTSIDE RECORDS SUMMARY | 2024-12-03 18:20 | XMS_ITS | Encounter Summary ---
Author Organization [facility] Address [address] [place] [address] Care Team Providers Care Photography And Prints Curator Name Role Phone Zhang Larson APRN Primary Care Provider [phone] Encounter Details Date Type Department Care Team ([facility] Contact Info) Description 02/09/[address] [facility] [address] [place] [address] Nayana Alves MD [address] [place] [address] Social History Tobacco Use Types Packs/Day Years Used Date Smoking Tobacco: Never Smokeless Tobacco: Never Comments Unknown Sex and Gender Information Value Date Recorded Sex Assigned at Not on file Legal Sex Female 4:44 PM EST Gender Identity Not on file Sexual Orientation Not on file 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 No / Unsure 02/04/2020 10:14 AM EST documented as of this encounter Plan of Treatment Not on file documented as of this encounter Visit Diagnoses Not on filedocumented in this encounter Care Teams Photography And Prints Curator Relationship Specialty Start Date End Date Zhang Larson APRN [address] [place] [address] PCP - General Family Medicine 11/21/18 documented as of this encounter
--- OUTSIDE RECORDS SUMMARY | 2024-12-03 18:20 | XMS_ITS | Clinical Summary ---
Author Organization [facility] Address [address] [place] [address] Phone Care Team Providers Care Electronic Publisher Name Role Phone Ruslan Arnold MD Primary Care Provider [phone] Allergies Active Allergy Reactions Criticality Noted Date Comments Hydromorphone Hives High 02/24/2021 Hives, including mouth Ketorolac Anaphylaxis,Hives,It c alberta,Palpitations,Sonia rtness Of Breath,Swelling High 11/15/2020 Moxifloxacin Swelling Medium 10/28/2017 Eye drops caused eye swelling Eye drops only Prednisolone Unknown Medium 02/05/2020 Secukinumab Hives,Rash Medium 04/25/2016 Tobramycin-Lotepred Rash Low 10/28/2017 Medications CIMZIA 400 mg/2 mL (200 mg/mL x [...] wheezing or shortness of breath/dyspnea. 8 g 3 Active Social History Tobacco Use Types Packs/Day [...] with a working camera? Not on file Comments Unknown Sex and Gender Information Value Date Recorded Sex Assigned at Not on file Legal Sex Female 10:49 AM EST Gender Identity Not on file Sexual Orientation Not on file Last Filed Vital Signs Vital Sign Reading Time Taken Comments Blood Pressure 116/74 02/25/2023 8:33 AM EST Pulse 89 02/25/2023 8:33 AM EST Temperature 36.9 C (98.4 F) 02/25/2023 8:33 AM EST Respiratory Rate 16 02/25/2023 8:33 AM EST [...] After 26 Yrs) 07/28/2021 INFLUENZA VACCINE (#1) 2024 12/28/2020 Adult Td,Tdap Booster 12/28/2030 12/28/2020 HEPATITIS [...] age to complete this topic MENINGOCOCCAL VACCINES (B) Aged Out N o longer eligible based on patient's age to complete this topic Medical Devices Not on file Insurance [address] [id number] [employer] . [address] [employer] . [address] [id number] [employer] . [address] Fischer [employer] Care Teams Electronic Publisher Relationship Specialty Start Date End Date Ruslan Arnold MD [address] [place] [id number] [email or web address] PCP - General Family Medicine 05/21/23 Additional Source Comments The information contained in this document represents components of the legal health record. It is not the complete legal health record.[facility]
--- OUTSIDE RECORDS SUMMARY | 2024-12-03 18:20 | XMS_ITS | Clinical Summary ---
Author Organization [facility] Address [address] [place] [address] Care Team Providers Care Scrubber Machine Tender Name Role Phone Preston Garcia MD Primary Care Provider [phone] Allergies Active Allergy Reactions Criticality Noted Date Comments Hydromorphone Hives High 02/24/2021 Hives, including mouth Ketorolac Tromethamine Anaphylaxis,Hives ,It cruzito,Palpitations,S hortness Of Breath,Swelling High 11/15/2020 Loteprednol-Tobramycin Rash Low 10/28/2017 Moxifloxacin Swelling 10/28/2017 Eye drops only Secukinumab Rash Low 04/25/2016 Medications Medication Sig Dispensed Refills Start Date End Date Status Qohrtuyg-Pwk-Dt-FA (PRE-IRWIN PO) Take by mouth. 0 Active [...] 60 02/26/2021 1:06 PM EST Temperature 37.1 C (98.7 F) 02/26/2021 1:06 PM EST Respiratory Rate 18 02/26/2021 1:06 PM EST [...] BMI Counseling 12/19/2019 12/18/2018 Influenza Vaccine (#1) 2024 9, 12/30/2017, 06/13/2017, Additional history exists DTap [...] this topic Medical Devices Implanted Type Area Barbed Wire Machine Operator Device Identifier Shelf Expiration Date Model / Serial / Lot Hemostat Celulos 4 3x4in Oxydized Pedi Sz [facility]-Ethi [id number] - [id number] Implanted:Qty : 1 on 02/23/2021 by Ester Hewitt [place] at [facility] and Med Hemostatic Agent N/A: Uterus [facility] [employer] 10/22/2024 1943 / / [id number] Advance Directives For more information, please contact: [phone] Latest Code Status on File Code Status Date Activated Date Inactivated Comments Full Code 02/22/2021 4:07 PM 02/27/2021 2:21 AM This code status was ascertained in the following way: discussion with patient . Care Teams Scrubber Machine Tender Relationship Specialty Start Date End Date Preston Garcia MD [address] [place] [phone] PCP - General Emergency Medicine 07/21/20
--- OUTSIDE RECORDS SUMMARY | 2024-12-03 18:20 | XMS_ITS | Encounter Summary ---
Author Organization [facility] Address [address] [place] [address] Care Team Providers Care Media Assistant Name Role Phone Neo, Zhang Arron GREENBERG Primary Care Provider Encounter Details Date Type Department Care Team (Late st Contact Info) Description 02/03/2019 Scanned Document [facility] [address] [place] [address] [place] [address] Ford Darden DO [address] [place] [address] Social History Tobacco Use Types Packs/Day Years [...] 12:00 AM EST) Ford Darden DO PATHOLOGY/CYTOLOGY ORDERABLES Fi nal Result documented in this encounter Visit Diagnoses Not on filedocumented in this encounter Care Teams Media Assistant Relationship Specialty Start Date End Date Zhang Larson, SPECIAL EFFECTS TECHNICIAN [address] [place] [address] PCP - General Family Medicine 11/21/18 documented as of this encounter
--- OUTSIDE RECORDS SUMMARY | 2024-12-03 18:20 | XMS_ITS | Encounter Summary ---
Author Organization [facility] Address [address] [place] [address] Care Team Providers Care Proof Operator Name Role Phone Zhang Larson APRN Primary Care Provider [phone] Encounter Details Date Type Department Care Team ([facility] st Contact Info) Description 10/30/2018 Scanned Document [facility] [address] [facility] [place] [address] Derrick Irvin MD [address] [facility] [address] [place] [address] Social History Tobacco Use Types Packs/Day Years Used Date Smoking Tobacco: Never Assessed Comments Unknown Sex and Gender Information Value Date Recorded Sex Assigned at Not on file Legal Sex Female 4:44 PM EST Gender Identity Not on file Sexual Orientation Not on file documented as of this encounter Plan of Treatment Not on file documented as of this encounter Visit Diagnoses Not on filedocumented in this encounter Care Teams Proof Operator Relationship Specialty Start Date End Date Zhang Larson APRN [address] [place] [phone] PCP - General Family Medicine 11/21/18 documented as of this encounter
--- OUTSIDE RECORDS SUMMARY | 2024-12-03 18:20 | XMS_ITS | Clinical Summary ---
Author Organization [facility] Address [address] [place] [address] Care Team Providers Care Returned Goods Inspector Name Role Phone Neo Zhang Arron GREENBERG Primary Care Provider [phone] Allergies Active Allergy Reactions Criticality Noted Date Comments Secukinumab Hives,Rash/Dermatitis Medium 02/05/2020 Moxifloxacin Swelling Medium 02/05/2020 Eye drops caused eye swelling Prednisolone Unknown/Patient and Family Unable to Define Medium 02/05/2020 Medications FLUoxetine (PROzac) 10 MG capsule TK 1 C PO D 1 12/25/2018 Active tacrolimus (PROTOPIC) 0.1 % ointment Apply topically. 08/05/2018 Active golimumab (SIMPONI ARIA) 50 MG/4ML injection Infuse into a venous catheter. Active sodium-potassiu m-magnesium sulfates (SUPREP BOWEL PREP KIT) 17.5-3.13-1.6 GM/177ML Solution solutionIndicat ions:Iron deficiency Take two 177 mL bottles as directed 2 Bottle 01/02/2019 Active EpiPen 2-Eugenio 0.3 MG/0.3ML auto-injectionI ndications:Drug -induced anaphylaxis, initial encounter Use as directed for [...] Not on file Not on roberto e Last Filed Vital Signs Vital Sign Reading [...] - 19+ 3-dose series) 07/28/2014 Pneumococcal Vaccine: Pediat yobany (0-5 Years) and At-Risk Patients (6 to 49 Years) (1 of 2 - PCV) 07/28/2014 HPV Vaccines (1 - 3-dose SCDM series) 07/28/2022 Pap Smear (Ages 21-65) 08/12/2023 08/11/2020 Influenza Vaccine 10/23/2024 12/30/2017 Hepatitis C Virus Screening Completed 08/11/2020 HIV Screening Completed 12/28/2020, 08/11/2020 Procedures Procedure Name Priority Date/Time Associated Diagnosis Comments HIV 1/2 AG/AB CMIA REFLEX TO CONFIRMATION Routine 12/28/2020 9:00 AM EDT THINPREP PAP TEST (WALL TAPER HELPER) WITH HPV REFLEX, GC/CT Routine 08/11/2020 7:56 PM EDT HEPATITIS C VIRUS (HCV) ANTIBODY Routine 08/11/2020 9:46 AM EDT from Last 3 Months or Most Recently Relevant to Health Maintenance Results * HIV 1/2 Ag/Ab CMIA Reflex to Confirmation (12/28/2020 9:00 AM EDT) HIV Ag/Ab, 4th Gen Non-Reacti ve Non-Reacti ve [facility] Comment: Results show no evidence of infection by HIV 1/2. If clinically indicated, repeat CMIA or test by nucleic acid amplification. Other 12/28/2020 9:00 AM EDT 12/28/2020 9:07 PM EDT Narrative [facility] - 12/29/2020 11:03 AM EDT FASTING:UNKNOWN Zoya De La Torre LAB BLOOD ORDERABLES Final Result [facility] [address] [place], [place] * ThinPrep Pap Test (Assistant Business Manager) with HPV Reflex, GC/CT (08/11/2020 7:56 PM EDT) Report Report [facility] Comment: Final Gynecological Cytology Report ThinPrep Pap Test with HPV Reflex, GC/Chlamydia SPECIMEN ADEQUACY: SATISFACTORY FOR EVALUATION; ENDOCERVICAL/TRANSFORMATION ZONE COMPONENT PRESENT. INTERPRETATION: NEGATIVE FOR INTRAEPITHELIAL LESION OR MALIGNANCY. Electronically Signed: Zeenat Sultana CT (ASCP) Electronically Signed: Maile Bañuelos CT (ASCP) CLINICAL INFORMATION: LMP: NG Specimen Source: Cervix, Endocervix CPT Codes: 82821 ICD Codes: Z34.90 Other 08/11/2020 7:56 PM EDT 08/11/2020 9:11 PM EDT Zoya De La Torre DO LAB AMB PATH/CYTO ORDERABLE S Final Result [facility] [address] [place], [place] * Hepatitis C Virus (HCV) Antibody (08/11/2020 9:46 AM EDT) Hepatitis C Antibody 0.28 Non-Reacti ve Non-Reacti ve S/CO [facility] CT [facility] Other 08/11/2020 9:46 AM EDT 08/11/2020 8:54 PM EDT Zoya De La Torre DO LAB BLOOD ORDERABLES Final Result Performing Organization Address City/[facility] Co de Phone Number [facility] [address] [place], [place] from Last 3 Months or Most Recently Relevant to Health Maintenance Insurance - [facility] Care Teams Returned Goods Inspector Relationship Specialty Start Date End Date Zhang Larson, LINE MAINTENANCE TECHNICIAN [address] [place] [id number] PCP - General Family Medicine 11/21/18
--- OUTSIDE RECORDS SUMMARY | 2024-12-03 18:20 | XMS_ITS | Encounter Summary ---
Author Organization [facility] Address [address] [facility] [address] [place] [address] Phone Care Team Providers Care Rn Care Transition Name Role Phone Ruslan Arnold MD Primary Care Provider [phone] Encounter Details Date Type Department Care Team (Latest Contact Info) Description 07/17/2023 Transcribe Orders [facility] Specimen Processing [address] [place] [address] Светлана Bond PA [address] [facility] [address] [place] [address] Encounter for long-term (current) use of other [...] Primary documented in this encounter Care Teams Rn Care Transition Relationship Specialty Start Date End Date Ruslan Arnold MD [address] [place] [address] [email or web address] PCP - General Family Medicine 05/21/23 documented as of this encounter Additional Source Comments The information contained in this document represents components of the legal health record. It is not the complete legal health record.[facility]
--- OUTSIDE RECORDS SUMMARY | 2024-12-03 18:20 | XMS_ITS | Encounter Summary ---
Author Organization [facility] Address [address] [place] [address] Phone Care Team Providers Care Assignment Desk Assistant Name Role Phone Pcp, Unknown Primary Care Provider Ruslan Lopez MD Primary Care Provider [phone] Encounter Details Date Type Department Care Team (Late st Contact Info) Description 08/28/2022 Transcribe Orders Virtual Department [address] [place] [address] Ruslan Arnold MD [address] [place] [phone] Elevated LFTs (Primary Dx) Social History Tobacco [...] ultrasound Ruslan Arnold MD IMG US ABDOMEN Final Result documented in this encounter Visit Diagnoses Diagnosis Elevated LFTs- Primary Other abnormal blood chemistry Elevated LFTs Other abnormal blood chemistry documented in this encounter Care Teams Assignment Desk Assistant Relationship Specialty Start Date End Date Pcp, Unknown PCP - General 04/02/22 05/20/23 Ruslan Arnold MD [address] [place] [phone] [email or web address] PCP - General Family Medicine 05/21/23 documented as of this encounter Additional Source Comments The information contained in this document represents components of the legal health record. It is not the complete legal health record.[facility]
--- OUTSIDE RECORDS SUMMARY | 2024-12-03 18:20 | XMS_ITS | Encounter Summary ---
Author Organization [facility] Address [address] [place] [address] Care Team Providers Care Survey Research Teacher Name Role Phone Zhang Larson APRN Primary Care Provider [phone] Encounter Details Date Type Department Care Team ([facility] Contact Info) Description 02/09/[address] [facility] [address] [place] [address] Nayana Alves MD [address] [place] [phone] Social History Tobacco Use Types Packs/Day Years [...] on filedocumented in this encounter Care Teams Survey Research Teacher Relationship Specialty Start Date End Date Zhang Larson APRN [address] [place] [phone] PCP - General Family Medicine 11/21/18 documented as of this encounter
--- OUTSIDE RECORDS SUMMARY | 2024-12-03 18:20 | XMS_ITS | Encounter Summary ---
Author Organization [facility] Address [address] [place] [address] [place] [address] Phone Care Team Providers Care Cabin Outfitter Name Role Phone Ruslan Arnold MD Primary Care Provider [phone] Encounter Details Date Type Department Care Team (Late st Contact Info) Description 07/16/2023 Transcribe Orders [facility] Specimen Processing [address] [place] [address] Ruslan Arnold MD [address] [place] [phone] [email or web address] Social History Tobacco Use Types Packs/Day Years [...] on filedocumented in this encounter Care Teams Cabin Outfitter Relationship Specialty Start Date End Date Ruslan Arnold MD [address] [place] [phone] [email or web address] PCP - General Family Medicine 05/21/23 documented as of this encounter Additional Source Comments The information contained in this document represents components of the legal health record. It is not the complete legal health record.[facility]
== END 2024-12-03 15:25 | disposition home or self-care (01) ==
LOC: HO.RHES 14:44
PROVIDERS: PCP Family Medicine; Visit Provider Internal Medicine Rheumatology
DX: L40.50 Arthropathic psoriasis, unspecified (principal)
CPT/HCPCS: 99214